=== PATIENT | male | born 1945 | race Caucasian/White ===

== ENCOUNTER 2020-02-03 11:23 | Inpatient (IN) | payer MEDICARE, MEDICAID, OTHER ==
[2020-02-03] MEDS ORDERED: niCARdipine 20MG In NaCl 20 MG/200 ML BAG ONE ×2 (14:29→14:32)
[2020-02-03] MEDS ORDERED: niCARdipine 50 MG in Sodium Chloride 0.9% 250 ML 230 ML IV SCH (16:00)
[2020-02-03] MEDS ORDERED: Acetaminophen 325 MG TAB PO PRN ×2 (16:00→16:29)
[2020-02-03] MEDS ORDERED: Ondansetron PF 4 MG/2 ML Vial IVP PRN ×2 (16:00→16:29)
[2020-02-03] MEDS ORDERED: Ondansetron ODT 4 MG TAB SL PRN (16:00)
[2020-02-03] MEDS ORDERED: Labetalol HCl 100 MG/20 ML VIAL SLOW IVP PRN (16:29)
[2020-02-03] MEDS ORDERED: Guaifenesin DM 100-10/5 ML UDCUP PO PRN (16:29)
[2020-02-03] MEDS ORDERED: hydrALAZINE 20 MG/ML VIAL SLOW IVP PRN (16:29)
[2020-02-03] MEDS ORDERED: Acetaminophen 650 MG Suppository PR PRN (16:29)
[2020-02-03] MEDS ORDERED: Ondansetron ODT 4 MG TAB PO PRN (16:29)
[2020-02-03 16:34] VITALS: BMI 22.0
[2020-02-03] MEDS ORDERED: HumaLOG 300 UNITS/3 ML VIAL SC PRN ×2 (16:40)
[2020-02-03] MEDS ORDERED: Dextrose 50% Abboject 50 ML SYRINGE SLOW IVP PRN (16:40)
[2020-02-03] MEDS ORDERED: Dextrose 5% in Water 1,000 ML IV PRN (16:40)
[2020-02-03] MEDS ORDERED: Amlodipine 10 MG TAB PO SCH (16:45)
--- NOTE | 2020-02-03 17:35 | HP ---
PRIMARY CARE PHYSICIAN: [facility]. CHIEF COMPLAINT: Confusion and left-sided weakness. HISTORY OF PRESENT ILLNESS: This is a 74-year-old white male with a known history of hypertension, tobacco abuse, and repeated previous strokes, last seen in [facility] for bilateral acute basal ganglia strokes and hypertensive emergency. He was discharged on multiple blood pressure medications. The patient reports he is not compliant with those, thinks he may have last taken some medicine about a week ago. The patient was noted by caregiver to be confused this morning and to have peed on himself. He was also noted to have some difficulty walking and left-sided weakness. When EMS arrived, his blood pressure was in the 240s over greater than 120s, so he was transported to [facility] for stabilization there. His mentation has already improved and his weakness was almost resolved. He had nicardipine drip started. Blood pressure improved with that and he was transferred here after negative CTA of the head and neck, negative CT of the brain. The patient is now currently in the ICU on nicardipine drip. Blood pressures are running in the 190s systolic. He denies any acute complaints. States he does have a little bit of trouble speaking and confusion, but that is baseline from his previous strokes. REVIEW OF SYSTEMS: CONSTITUTIONAL: No fevers. No chills. EYES: The patient reports that his left eye, he noted one day some time between his last hospitalization and this hospitalization that he suddenly had lost complete vision in that eye. This was over a week ago, uncertain exactly how long ago it happened. He has not had any vision in that eye ever since. He never went to a doctor about this. His vision in his right eye, he has not noticed any changes today with that. ENT: He has had some chronic runny nose, but no congestion. No sore throat. CARDIOVASCULAR: No chest pains. No palpitations or racing heart. PULMONARY: No new coughing. He does have a chronic smoker's cough for the last 2 years, but has not gotten worse recently. No shortness of breath or wheezing. GASTROINTESTINAL: No abdominal pain. No nausea or vomiting. No diarrhea or constipation. GENITOURINARY: No dysuria or hematuria. He did have the urinary incontinence this morning that he was not aware of. Currently, he is continent of his urine and states that he does need to urinate. MUSCULOSKELETAL: No muscle aches or joint pains of his extremities. He does have some right lateral chest tenderness from a fall. He was seen in the [facility] for about a week ago, was noted to have some cracked ribs. He does have an Gaurav bandage around his chest for stabilization, but has not had any other problems from that. SKIN: No rashes or other lesions noted. NEUROLOGIC: See HPI. He does not note any weakness currently. No numbness or tingling. PAST MEDICAL HISTORY: 1. Hypertension. 2. Hyperlipidemia. 3. Recurrent strokes. 4. Borderline diabetes, on metformin. 5. Chronic renal failure with creatinine around 2. PAST SURGICAL HISTORY: None. SOCIAL HISTORY: The patient drinks about twice a month. No drug use. He smokes a pack of cigarettes per day. Lives at home with his son, Dami Artis, who would be his medical power of insurance defense attorney. He states he is a full code. FAMILY HISTORY: No known family medical history. ALLERGIES: NO KNOWN DRUG ALLERGIES. CURRENT MEDICATIONS: Per patient's pharmacy which he is not taking, the patient is supposed to be on, 1. Metformin 500 mg each morning. 2. Acetaminophen with codeine. 3. One tablet every 6 hours as needed. He had 3 of 10 that he was prescribed in the ER left in the bottle. 4. Amlodipine 10 mg daily. 5. Atorvastatin 40 mg daily. 6. Hydralazine 50 mg 3 times a day. 7. Isosorbide mononitrate 30 mg daily. 8. Lisinopril 5 mg twice a day. PHYSICAL EXAMINATION: VITAL SIGNS: Blood pressure 181/61, pulse 75, respirations 16, O2 saturation 97% on room air, temperature 98.9. GENERAL: This is a well-developed, well-nourished white male, in no acute distress. HEENT: Pupils equal, round, and reactive to light. Oropharynx clear without lesions, erythema, or exudate. NECK: Supple. No lymphadenopathy. No thyroid nodules or enlargement. No JVD. HEART: Regular rate and rhythm. No murmurs, rubs, or gallops. LUNGS: Clear to auscultation bilaterally. No wheezes, crackles, or rhonchi. ABDOMEN: Soft, nontender to palpation. Normoactive bowel sounds. No hepatosplenomegaly or other masses. He does have some tenderness over his right lower rib cage, more anteriorly and laterally but without any bruising or deformity noted. EXTREMITIES: No clubbing, cyanosis, or edema. SKIN: No rashes or lesions noted. NEUROLOGIC: The patient has 5/5 strength in all 4 extremities and reflexes in all 4 extremities. He has no facial droop. He does have a little bit of trouble word finding occasionally and his speech, he occasionally has a little bit of a stutter and has some trouble remembering things, but if he takes enough time, he can remember things like where he is, the year and date, and why he is here. PSYCHIATRIC: Alert and oriented x3. Normal mood and affect. LABORATORY DATA: Troponin negative x2. CBC with a white blood cell count 13,000, 85% neutrophils, hemoglobin 10, hematocrit 30, normal platelets. Coagulation profile with an INR of 1.2. Complete metabolic panel is notable for chloride of 108, BUN of 34, creatinine of 2.17 which is actually down from 2.24 last month, glucose of 112, ALT of 7, albumin of 3.3. The rest is normal. Creatine kinase was low at 14. Troponin was negative. TSH was normal. IMAGING STUDIES: Chest x-ray; I did review the chest x-ray done in the emergency room along with the radiologist's report, it does show persistent nodular density in the right mid lung and they recommend elective CT chest as an outpatient. CT of the head without contrast was negative. CTA of the head and neck showed some atherosclerosis, but no evidence of stenosis or blockage. EKG; I did review the EKG done in the [facility], does show normal sinus rhythm at 78 beats per minute with some nonspecific ST wave abnormalities, but no evidence of acute ischemic changes or significant arrhythmias. ASSESSMENT: 1. Hypertensive emergency, improved on nicardipine drip. We will resume his home blood pressure medicines and try to titrate that off. 2. Transient ischemic attack versus stroke. The patient's weakness and altered mental status appeared to have resolved to baseline. We will get an MRI to see whether or not he has had another acute stroke. We will need to resume his medications and I have counseled him about the importance of taking them daily and about stopping smoking. Otherwise, he will have eventually have a major stroke. It will kill him. The patient expressed understanding of this. 3. Borderline diabetes. We will hold metformin due to creatinine elevation. We will check fingerstick blood sugars q.a.c. and at bedtime with a low insulin sliding scale. 4. Chronic renal failure. As far as I can tell, he is at baseline. We will watch carefully as we resume his GAURAV inhibitor. 5. Gastrointestinal prophylaxis. The patient is on Pepcid twice a day. 6. Deep venous thrombosis prophylaxis. We will put the patient on heparin subcutaneous. 7. Code status. The patient is a full code. Should he be incapacitated, his son, Dami Artis, would be his medical decision maker. Job ID: [id number]
[2020-02-03 19:25] LABS: Troponin I 0.018 ng/mL (< 0.028)
[2020-02-03] MEDS: Heparin 5,000 UNITS/ML VIAL SC SCH (20:01)
[2020-02-03] MEDS: Lisinopril 5 MG TAB PO SCH (20:02)
[2020-02-03] MEDS: hydrALAZINE 25 MG TAB PO SCH (20:02)
[2020-02-03] MEDS: Acetaminophen/Codeine 30-300mg Tablet PO PRN (20:03)
[2020-02-03] MEDS ORDERED: Famotidine 20 MG TAB PO SCH (21:00)
[2020-02-03 22:00] LABS: Troponin I 0.014 ng/mL (< 0.028)
[2020-02-04 03:55] LABS: #Basophils 0.1 thou/uL (0.0-0.2); #Eosinphils 0.4 thou/uL (0.0-0.7); #Lymphocytes 1.4 thou/uL (1.20-3.40); #Monocytes 0.6 thou/uL (0.11-0.59); #Neutrophils 12.1 thou/uL (1.40-6.50); %Basophils 0.4 % (0.0-1.0); %Eosinophils 2.8 % (0.0-10.0); %Lymphocytes 9.7 % (21.0-51.0); %Monocytes 3.8 % (0.0-10.0); %Neutrophils 83.3 % (42.0-75.0); Hemoglobin 11.2 g/dL (14.0-18.0); Mean Corpuscular HGB CONC 34.9 g/dL (32.0-36.0); Mean Corpuscular Hemoglobin 31.2 pg (27.0-31.0); Mean Corpuscular Volume 89.4 fL (78.0-98.0); Mean Platelet Volume 8.9 fL (7.4-10.4); Platelet Count 154 thou/uL (130-400); RBC Distribution Width 11.7 % (11.5-14.5); Red Blood Cell (RBC) Count 3.58 mill/uL (4.70-6.10); White Blood Cell (WBC) Count 14.6 thou/uL (4.8-10.8)
[2020-02-04 04:20] LABS: Anion Gap 12 mmol/L (10-20); BUN (Urea Nitrogen) 32 mg/dL (8.4-25.7); Calc. Creatinine Clearance 28 mL/min (70-130); Calcium 8.8 mg/dL (7.8-10.44); Carbon Dioxide 23 mmol/L (23-31); Cardiac Risk 3.5 (Less than 4.5); Chloride 111 mmol/L (98-107); Cholesterol 120 mg/dl (< 200 Desired); Estimated GFR-MDRD 31; Glucose 116 mg/dL (83-110); HDL Cholesterol 34 mg/dL (>60 Neg Risk); LDL Cholesterol, Calculated 70 mg/dL; Potassium 4.2 mmol/L (3.5-5.1); Sodium 142 mmol/L (136-145); Triglycerides 79 mg/dL (Less than 150)
--- NOTE | 2020-02-04 07:37 | CT ---
PRELIMINARY REPORT/DIRECT RADIOLOGY/EMERGENCY AFTER HOURS PROCEDURE: Comparison addendum: Prior study is now available dated February 03, 2020. No acute findings and no s ignificant interval change. Addendum electronically signed by Roberto Geronimo MD on February 04, 2020 5:36:11 AM CDT EXAM: CT Head Without Intravenous Contrast. CLINICAL HISTORY: F/U AMS\CONFUSION Pt was scanned at another facility, images sent for compariso n, images under ID [id number] TECHNIQUE: Axial computed tomography images of the head/brain without intravenous contrast. COMPARISON: NONE PROVIDED. FINDINGS: BRAIN: No acute intraparenchymal hemorrhage. No mass lesion. No CT evidence for acute territorial inf arct. No midline shift or extra-axial collection. Some confluent periventricular white matter changes are noted with chronic appearing low density in the right thalamus. VENTRICLES: No hydrocephalus. ORBITS: The orbits are unremarkable. SINUSES AND MASTOIDS: The paranasal sinuses and mastoid air cells are clear. Soft tissue density in the external ear canals bilaterally SOFT TISSUES: No significant facial or scalp soft tissue swelling evident. No radiopaque foreign body is seen. BONES: No acute skull fracture. IMPRESSION: No acute intracranial abnormality. Chronic changes are noted. Soft tissue opacities wi thin the external auditory canals bilaterally. ELECTRONICALLY SIGNED BY: Roberto Geronimo MD Feb 04, 2020 5:26:41 AM CDT FINAL REPORT HEAD CT WITHOUT CONTRAST: DATE: 02/04/2020. COMPARISON: 01/01/2020. HISTORY: Altered mental status, confusion. FINDINGS: I agree with the preliminary report. There is new opacification of a hypoplastic right sphenoid sinus . No acute osseous abnormality. No intracranial hemorrhage, midline shift, or mass effect. Stable lacunar infarctions within the basal ganglia. Stable periventricular and deep white matter hypodensit y, evidence of small vessel disease. IMPRESSION: No intracranial hemorrhage. Transcribed Date/Time: 02/04/2020 8:06 AM
[2020-02-04] MEDS: hydrALAZINE 25 MG TAB PO SCH ×3 (08:15→21:56)
[2020-02-04] MEDS: Amlodipine 10 MG TAB PO SCH (08:16)
[2020-02-04] MEDS: Lisinopril 5 MG TAB PO SCH ×2 (08:16→21:56)
[2020-02-04] MEDS: Heparin 5,000 UNITS/ML VIAL SC SCH ×3 (08:16→21:55)
--- NOTE | 2020-02-04 09:19 | PDOC.HOSPP ---
- Subjective Encounter Date: 02/04/20 Encounter Time: 09:30 Subjective: Patient without complaint today. A little confused and has to be given time to answer questions before can eventually get them right. - Objective Vital Signs & Weight: Vital Signs (12 hours) Temp Pulse BP 02/04/20 08:16 78 167/68 H 02/04/20 08:15 80 168/67 H 02/04/20 04:00 99.0 F 02/04/20 00:00 98.9 F Weight Weight 140 lb 10.479 oz Most Recent Monitor Data Heart Rate from ECG 84 NIBP 168/67 NIBP BP-Mean 100 Respiration from ECG 19 SpO2 100 I&O: 02/03/20 02/04/20 02/05/20 06:59 06:59 06:59 Intake Total 537 Output Total 1100 Balance -563 Result Diagrams: 02/04/20 03:31 02/04/20 03:31 Additional Labs: Accuchecks 02/04/20 02/03/20 04:40 20:08 POC Glucose 101 H 173 H Hospitalist ROS - Review of Systems Constitutional: denies: fever, chills, weakness Respiratory: denies: cough, shortness of breath Cardiovascular: denies: chest pain, palpitations Gastrointestinal: denies: nausea, vomiting, abdominal pain - Medication Medications: Active Medications Generic Name Dose Route Start Last Admin Trade Name Freq PRN Reason Stop Dose Admin Acetaminophen/Codeine Phosphate 1 tab 02/03/20 16:29 02/03/20 20:03 Acetaminophen/Codeine 30-300mg Tablet PO 1 tab Q6H PRN Administration Moderate to Severe Pain Amlodipine Besylate 10 mg 02/04/20 09:00 02/04/20 08:16 Amlodipine 10 Mg Tab PO 10 mg DAILY DAMIAN Administration Heparin Sodium (Porcine) 5,000 units 02/03/20 21:00 02/04/20 08:16 Heparin 5,000 Units/Ml Vial SC 5,000 units TID DAMIAN Administration Hydralazine HCl 50 mg 02/03/20 21:00 02/04/20 08:15 Hydralazine 25 Mg Tab PO 50 mg TID DAMIAN Administration Isosorbide Mononitrate 30 mg 02/04/20 09:00 02/04/20 08:16 Isosorbide Mononitrate Er 30 Mg Tab PO 30 mg DAILY DAMIAN Administration Lisinopril 5 mg 02/03/20 21:00 02/04/20 08:16 Lisinopril 5 Mg Tab PO 5 mg BID DAMIAN Administration - Exam General Appearance: NAD, awake alert ENT: moist mucosa Heart: RRR, no murmur, no gallops, no rubs Respiratory: CTAB, no wheezes, no rales, no ronchi Gastrointestinal: soft, non-tender, non-distended, normal bowel sounds Musculoskeletal: normal tone, normal strength Psychiatric: normal affect, normal behavior, A&O x 3 Psychiatric - other findings: slow responses and will sometimes get orientation quest wrong Hosp A/P (1) Hypertensive emergency Code(s): I16.1 - HYPERTENSIVE EMERGENCY Status: Resolved (2) TIA (transient ischemic attack) Code(s): G45.9 - TRANSIENT CEREBRAL ISCHEMIC ATTACK, UNSPECIFIED Status: Acute (3) Diabetes mellitus type 2 in nonobese Code(s): E11.9 - TYPE 2 DIABETES MELLITUS WITHOUT COMPLICATIONS Status: Chronic (4) Chronic renal failure, stage 3 (moderate) Code(s): N18.30 - CHRONIC KIDNEY DISEASE, STAGE 3 UNSPECIFIED Status: Chronic (5) History of CVA (cerebrovascular accident) Code(s): Z86.73 - PRSNL HX OF TIA (TIA), AND CEREB INFRC W/O RESID DEFICITS Status: Chronic (6) Hyperlipidemia Code(s): E78.5 - HYPERLIPIDEMIA, UNSPECIFIED Status: Chronic (7) Nonadherence to medication Code(s): Z91.14 - PATIENT'S OTHER NONCOMPLIANCE WITH MEDICATION REGIMEN Status: Chronic - Plan Aspirin Statin Resumed BP meds MRI pending, CTA head neck negative for stenosis/blockage GI proph: Pepcid DVT proph: Heparin sc
[2020-02-04 11:37] LABS: SARS-CoV-2 MS2 Positive; SARS-CoV-2 N Gene Negative; SARS-CoV-2 S Gene Negative; SARS-CoV-2 by NAA Not Detected (NotDetected); SARS-CoV-2 orf1ab Negative
--- NOTE | 2020-02-04 12:42 | PDOC.EEG ---
Neurology EEG Report - Report Report: This EEG was performed using 24 channel [employer] video digital EEG machine with 24 disc electrodes. This was an extended 2 hours 4 minutes of inpatient video EEG recording. Digital analysis of the EEG was done for Jenaro and seizure detection which revealed no abnormalities. Background: The nonsustained posterior pattern rhythm of 7 to 8 Hz. Minimal reactivity seen with eye opening and closure. Photic stimulation: No significant response seen with photic stimulation. Hyperventilation: Not performed. Sleep: Drowsiness and sleep are observed during the recording EEG diagnosis: Intermittent irregular theta activity seen throughout the recording. Nonsustained slow posterior background rhythm. Clinical interpretation: This EEG is consistent with moderate generalized nonspecific cerebral dysfunction.
--- NOTE | 2020-02-04 12:50 | CON ---
NEUROLOGY CONSULTATION DATE OF CONSULTATION: 02/04/2020 REASON FOR CONSULTATION: Confusion and left-sided weakness. HISTORY OF PRESENT ILLNESS: Mr. Kam is a 74-year-old male with a history significant for hypertension, tobacco abuse, and prior strokes, who was last seen in [place] for bilateral acute basal ganglia stroke and hypertensive emergency and been discharged on multiple blood pressure medications. Per patient, he has not been compliant with some of the medication and he came with hypertensive emergency. The family noticed him to be extremely confused on 02/03/2020 morning and he also had an episode of urinary incontinence. The family also noted that he was weak on the left side of his body. EMS was called and at that time, his systolic blood pressure was in 240s and diastolic greater than 120. He was transported to [facility] for stabilization and started on nicardipine drip. His weakness improved. Head CT was done, which was negative for acute intracranial pathology. CT of the head and neck was also negative. The patient denies any acute complaints. The patient does have trouble with speaking and he does have on and off mild confusion, which is his baseline due to prior stroke. The patient denies nausea, vomiting, headache, chest pain, abdominal pain, problem with swallowing, blurred vision, double vision or seizure-like activity associated with the episode. REVIEW OF SYSTEMS: All systems were reviewed and were negative except the pertinent positives and negatives mentioned in the HPI. PAST MEDICAL HISTORY: Hypertension, hyperlipidemia, prior strokes, diabetes, chronic renal failure. PAST SURGICAL HISTORY: Not significant. SOCIAL HISTORY: The patient drinks about twice a week. Denies alcohol, illegal drug abuse. He smokes a pack of cigarettes per day. FAMILY HISTORY: No family history of stroke or seizures. ALLERGIES: NO KNOWN DRUG ALLERGIES. CURRENT MEDICATIONS: The patient was supposed to be on, 1. Metformin. 2. Amlodipine. 3. Atorvastatin. 4. Hydralazine. 5. Isosorbide. 6. Lisinopril. Per patient, he is not compliant with the medications. Vital Signs & Weight: Vital Signs (12 hours) Temp Pulse BP 02/04/20 08:16 78 167/68 H 02/04/20 08:15 80 168/67 H 02/04/20 04:00 99.0 F 02/04/20 00:00 98.9 F Weight Weight 140 lb 10.479 oz Most Recent Monitor Data Heart Rate from ECG 84 NIBP 168/67 NIBP BP-Mean 100 Respiration from ECG 19 SpO2 100 I&O: 02/03/20 02/04/20 02/05/20 06:59 06:59 06:59 Intake Total 537 Output Total 1100 Balance -563 Additional Labs: Accuchecks 02/04/20 02/03/20 04:40 20:08 POC Glucose 101 H 173 H Active Medications Generic Name Dose Route Start Last Admin Trade Name Freq PRN Reason Stop Dose Admin Acetaminophen/Codeine Phosphate 1 tab 02/03/20 16:29 02/03/20 20:03 Acetaminophen/Codeine 30-300mg Tablet PO 1 tab Q6H PRN Administration Moderate to Severe Pain Amlodipine Besylate 10 mg 02/04/20 09:00 02/04/20 08:16 Amlodipine 10 Mg Tab PO 10 mg DAILY DAMIAN Administration Heparin Sodium (Porcine) 5,000 units 02/03/20 21:00 02/04/20 08:16 Heparin 5,000 Units/Ml Vial SC 5,000 units TID DAMIAN Administration Hydralazine HCl 50 mg 02/03/20 21:00 02/04/20 08:15 Hydralazine 25 Mg Tab PO 50 mg TID DAMIAN Administration Isosorbide Mononitrate 30 mg 02/04/20 09:00 02/04/20 08:16 Isosorbide Mononitrate Er 30 Mg Tab PO 30 mg DAILY DAMIAN Administration Lisinopril 5 mg 02/03/20 21:00 02/04/20 08:16 Lisinopril 5 Mg Tab PO 5 mg BID DAMIAN Administration PHYSICAL EXAMINATION: VITAL SIGNS: Blood pressure 180/60, pulse 80, respiratory rate 18. CVS: Regular rate and rhythm. CHEST: Clear. ABDOMEN: Soft. NECK: Supple. NEUROLOGIC: Mental status; the patient is alert and oriented to person and place, but not time. Speech is clear. He does have some receptive aphasia. Cranial nerves 2 through 12 intact. Motor, muscle tone and bulk are normal. Moving all 4 extremities equally and symmetrically. Mild left hemiparesis. Sensory, withdraws to nailbed pressure bilaterally. Cerebellar, finger-nose testing intact. Gait deferred due to the patient's safety reason. DATA REVIEWED: I reviewed the results of the CT scan which was negative for acute intracranial pathology. CT of the head and neck reviewed, which did not show hemodynamically significant stenosis. EKG showed normal sinus rhythm. ASSESSMENT AND PLAN: (1) Hypertensive emergency Code(s): I16.1 - HYPERTENSIVE EMERGENCY Status: Acute (2) TIA (transient ischemic attack) Code(s): G45.9 - TRANSIENT CEREBRAL ISCHEMIC ATTACK, UNSPECIFIED Status: Acute (3) Diabetes mellitus type 2 in nonobese Code(s): E11.9 - TYPE 2 DIABETES MELLITUS WITHOUT COMPLICATIONS Status: Chronic (4) Chronic renal failure, stage 3 (moderate) Code(s): N18.30 - CHRONIC KIDNEY DISEASE, STAGE 3 UNSPECIFIED Status: Chronic (5) History of CVA (cerebrovascular accident) Code(s): Z86.73 - PRSNL HX OF TIA (TIA), AND CEREB INFRC W/O RESID DEFICITS Status: Chronic (6) Hyperlipidemia Code(s): E78.5 - HYPERLIPIDEMIA, UNSPECIFIED Status: Chronic (7) Nonadherence to medication Code(s): Z91.14 - PATIENT'S OTHER NONCOMPLIANCE WITH MEDICATION REGIMEN Status: Chronic Mr. Andrew Kam is a 74-year-old male with history significant for hypertension, hyperlipidemia, diabetes, prior stroke, presented with acute onset left-sided weakness with confusion in the setting of hypertensive emergency, which is now almost resolved, most likely transient ischemic attack. Consider MRI of the brain to rule out acute intracranial process. 2D echo, carotid Dopplers, and telemetry. Neuro checks every 4 hours. Monitor blood pressure and strict control of blood glucose. Check hemoglobin A1c, fasting lipid panel, and TSH. Continue aspirin and high-intensity statin for secondary stroke prevention. Continue home medication. Continue medical management per primary team. PT/OT/Speech. EEG to evaluate for confusion to rule out cortical irritability is negative for seizure activity. Plan discussed with the patient and the nursing staff. We will continue to follow. Thank you for the consult. Job ID: [id number] [email or web address]
--- NOTE | 2020-02-04 13:40 | MRI ---
MRI of thebrain without contrast: 02/04/2020 COMPARISON:01/02/2020 HISTORY:Increasing weakness, assess for acute infarction TECHNIQUE: Multiplanar multisequence MR imaging of thebrain without contrast Findings:The diffusion weighted imaging demonstrates no evidence for acute infarction. There are a few scattered areas of stable blooming artifact on the gradient echo imaging suggesting a combination of remote microhemorrhage and calcification. The axial gradient echo imaging demonstrates no evidence for acute hemorrhage. There is patchy increased T2/FLAIR signal within the p ons, a stable finding. There is also extensive multifocal periventricular, deep, and subcortical white matter T2 and FLAIR hyperintensity. These findings are consistent with prominent stable small v essel disease. Arterial flow voids at the axial level of the skull base appear grossly unremarkable on the T2-weight ed imaging. Regional bone marrow signal intensity within normal limits. IMPRESSION:Significant small vessel disease. No MR evidence for acute infarction.
[2020-02-04] MEDS: Atorvastatin Calcium 40 MG TAB PO SCH (21:56)
[2020-02-04] MEDS: Famotidine 20 MG TAB PO SCH (21:56)
[2020-02-05 08:26] LABS: Anion Gap 10 mmol/L (10-20); BUN (Urea Nitrogen) 30 mg/dL (8.4-25.7); Calc. Creatinine Clearance 28 mL/min (70-130); Calcium 8.7 mg/dL (7.8-10.44); Carbon Dioxide 24 mmol/L (23-31); Chloride 107 mmol/L (98-107); Estimated GFR-MDRD 31; Glucose 85 mg/dL (83-110); Sodium 137 mmol/L (136-145)
[2020-02-05 08:28] LABS: ALT (SGPT) 8 U/L (8-55); AST (SGOT) 13 U/L (5-34); Albumin 3.5 g/dL (3.4-4.8); Alkaline Phosphatase 69 U/L (40-110); Bilirubin, Direct 0.3 mg/dL (0.1-0.3); Bilirubin, Total 0.6 mg/dL (0.2-1.2); Protein, Total 6.5 g/dL (5.8-8.1)
[2020-02-05] MEDS: Heparin 5,000 UNITS/ML VIAL SC SCH ×3 (08:36→22:14)
[2020-02-05] MEDS: Aspirin Chewable 81 MG TAB PO SCH (08:36)
[2020-02-05] MEDS: Amlodipine 10 MG TAB PO SCH (08:37)
[2020-02-05] MEDS: hydrALAZINE 25 MG TAB PO SCH ×3 (08:38→22:14)
[2020-02-05] MEDS: Lisinopril 5 MG TAB PO SCH ×2 (08:38→22:15)
[2020-02-05] MEDS: Acetaminophen/Codeine 30-300mg Tablet PO PRN (08:49)
--- NOTE | 2020-02-05 13:38 | PDOC.NEUPN ---
- Subjective Encounter Date: 02/05/20 Subjective: Patient feels much better today. He denies any new complaints. - Objective Vital Signs & Weight: Vital Signs (12 hours) Temp Pulse Resp BP BP Pulse Ox 02/05/20 11:17 97.0 F L 72 17 161/70 H 96 02/05/20 10:38 142/62 H 02/05/20 08:38 66 194/78 H 02/05/20 07:09 98.5 F 75 16 175/68 H 94 L 02/05/20 05:42 98.3 F 67 19 171/76 H 97 Weight Weight 140 lb 10.479 oz Most Recent Monitor Data Heart Rate from ECG 79 NIBP 143/70 NIBP BP-Mean 94 Respiration from ECG 16 SpO2 100 I&O: 02/04/20 02/05/20 02/06/20 06:59 06:59 06:59 Intake Total 537 600 Output Total 1100 1 Balance -563 599 Result Diagrams: 02/04/20 03:31 02/05/20 07:39 Additional Labs: Accuchecks 02/05/20 02/05/20 02/04/20 10: 06:00 22:14 POC Glucose 132 H 85 136 H 02/04/20 16:24 POC Glucose 108 H Radiology Reviewed by me: Yes EKG Reviewed by me: Yes ROS - Review of Systems Constitutional: denies: fever, chills, sweats, weakness, malaise, other Eyes: denies: pain, vision change, conjunctivae inflammation, eyelid inflammation, redness, other ENT: denies: ear pain, ear discharge, nose pain, nose discharge, nose congestion, mouth pain, mouth swelling, throat pain, throat swelling, other Respiratory: denies: cough, dry, shortness of breath, hemoptysis, SOB with excertion, pleuritic pain, sputum, wheezing, other Musculoskeletal: denies: neck pain, shoulder pain, arm pain, back pain, hand pain, leg pain, foot pain, other All Systems: All other systems reviewed; all pertinent +/- noted in HPI/Subj - Medication Medications: Active Medications Generic Name Dose Route Start Last Admin Trade Name Freq PRN Reason Stop Dose Admin Acetaminophen/Codeine Phosphate 1 tab 02/03/20 16:29 02/05/20 08:49 Acetaminophen/Codeine 30-300mg Tablet PO 1 tab Q6H PRN Administration Moderate to Severe Pain Amlodipine Besylate 10 mg 02/04/20 09:00 02/05/20 08:37 Amlodipine 10 Mg Tab PO 10 mg DAILY DAMIAN Administration Aspirin 81 mg 02/05/20 09:00 02/05/20 08:36 Aspirin Chewable 81 Mg Tab PO 81 mg DAILY DAMIAN Administration Atorvastatin Calcium 40 mg 02/04/20 21:00 02/04/20 21:56 Atorvastatin Calcium 40 Mg Tab PO 40 mg HS DAMIAN Administration Famotidine 20 mg 02/04/20 21:00 02/04/20 21:56 Famotidine 20 Mg Tab PO 20 mg 2100 DAMIAN Administration Guaifenesin/Dextromethorphan 15 ml 02/03/20 16:29 02/04/20 16:50 Guaifenesin Dm 100-10/5 Ml Udcup PO 15 ml Q4H PRN Administration Cough Heparin Sodium (Porcine) 5,000 units 02/03/20 21:00 02/05/20 08:36 Heparin 5,000 Units/Ml Vial SC 5,000 units TID [facility] Administration Hydralazine HCl 50 mg 02/03/20 21:00 02/05/20 08:38 Hydralazine 25 Mg Tab PO 50 mg TID [facility] Administration Isosorbide Mononitrate 30 mg 02/04/20 09:00 02/05/20 08:37 Isosorbide Mononitrate Er 30 Mg Tab PO 30 mg DAILY DAMIAN Administration Lisinopril 5 mg 02/03/20 21:00 02/05/20 08:38 Lisinopril 5 Mg Tab PO 5 mg BID DAMIAN Administration - Exam General Appearance: awake alert Eye: PERRL ENT: normocephalic atraumatic Neck: supple Respiratory: CTAB Cardiovascular: RRR Gastrointestinal: soft Extremities: no cyanosis Skin: normal turgor Neurological: no new deficit PSYCH: normal affect, normal behavior, oriented to person, oriented to place Results - Labs Result Diagrams: 02/04/20 03:31 02/05/20 07:39 Lab results: WBC 14.6 thou/uL (4.8-10.8) H 02/04/20 03:31 Hgb 11.2 g/dL (14.0-18.0) L 02/04/20 03:31 Hct 32.0 % (42.0-52.0) L 02/04/20 03:31 MCV 89.4 fL (78.0-98.0) 02/04/20 03:31 Plt Count 154 thou/uL (130-400) 02/04/20 03:31 Neutrophils % 83.3 % (42.0-75.0) H 02/04/20 03:31 Sodium 137 mmol/L (136-145) 02/05/20 07:39 Potassium 4.0 mmol/L (3.5-5.1) 02/05/20 07:39 Chloride 107 mmol/L (98-107) 02/05/20 07:39 Carbon Dioxide 24 mmol/L (23-31) 02/05/20 07:39 BUN 30 mg/dL (8.4-25.7) H 02/05/20 07:39 Creatinine 2.08 mg/dL (0.7-1.3) H 02/05/20 07:39 Glucose 85 mg/dL (83-110) 02/05/20 07:39 Calcium 8.7 mg/dL (7.8-10.44) 02/05/20 07:39 Total Bilirubin 0.6 mg/dL (0.2-1.2) 02/05/20 07:39 AST 13 U/L (5-34) 02/05/20 07:39 ALT 8 U/L (8-55) 02/05/20 07:39 Alkaline Phosphatase 69 U/L (40-110) 02/05/20 07:39 Troponin I 0.014 ng/mL (< 0.028) 02/03/20 21:11 Serum Total Protein 6.5 g/dL (5.8-8.1) 02/05/20 07:39 Albumin 3.5 g/dL (3.4-4.8) 02/05/20 07:39 - Radiology Interpretation MRI - head Status: image reviewed by me, report reviewed by me Additional Comment: MRI brain did not reeal acute intracranial pathology PN A/P (1) TIA (transient ischemic attack) Code(s): G45.9 - TRANSIENT CEREBRAL ISCHEMIC ATTACK, UNSPECIFIED Status: Acute (2) Chronic renal failure, stage 3 (moderate) Code(s): N18.30 - CHRONIC KIDNEY DISEASE, STAGE 3 UNSPECIFIED Status: Chronic (3) Diabetes mellitus type 2 in nonobese Code(s): E11.9 - TYPE 2 DIABETES MELLITUS WITHOUT COMPLICATIONS Status: Chronic (4) History of CVA (cerebrovascular accident) Code(s): Z86.73 - PRSNL HX OF TIA (TIA), AND CEREB INFRC W/O RESID DEFICITS Status: Chronic (5) Hyperlipidemia Code(s): E78.5 - HYPERLIPIDEMIA, UNSPECIFIED Status: Chronic (6) Nonadherence to medication Code(s): Z91.14 - PATIENT'S OTHER NONCOMPLIANCE WITH MEDICATION REGIMEN Status: Chronic (7) Hypertensive emergency Code(s): I16.1 - HYPERTENSIVE EMERGENCY Status: Resolved - Plan Daily Plan: PT/OT, speech therapy, DVT proph w/SCDs 74 year old presesented with acute onset left sided weakness and confusion in the setting of hypertensive emergency which is resolved. Most likely TIA due to noncompliance . MRI brain reviewed and was negative for acute intracanial pathology. EEG reviewed and was negative for seizure activity. Continue aspirin and statin for secondary stroke prevention. CTA head and nsck did not reveal hemodynamically significant stenosis. Strict control of BP and BG. Neurochecks every 4 hours. Medicine compliance encouraged. Telemetry PT/OT/Speech. Continue medical management per primary team. Plan discussed with patient and during MDR rounds.
--- NOTE | 2020-02-05 15:52 | DIS ---
DATE OF ADMISSION: 02/03/2020 DATE OF DISCHARGE: 02/05/2020 DISCHARGE DISPOSITION: Home. PRIMARY DISCHARGE DIAGNOSES: 1. Hypertensive emergency on admission, resolved. 2. TIA with left-sided weakness, resolved. SECONDARY DISCHARGE DIAGNOSES: 1. Diabetes mellitus type 2. 2. Dyslipidemia. 3. Noncompliance with medication. 4. Chronic kidney disease stage 3. PROCEDURES DONE DURING HOSPITALIZATION: CT of brain without contrast showed no acute intracranial abnormality. MRI of brain without contrast done showed significant small-vessel disease. No acute infarct was seen. H and H of 11 and 32, platelet count is 154. BUN 30, creatinine 2.0. Albumin 3.5. Liver enzymes within normal limits. Total cholesterol 120, triglycerides 79, LDL 70, HDL 34. Troponin x3 negative. COVID-19 PCR was not detected on 02/03/2020. DISCHARGE MEDICATIONS: 1. Metformin 500 mg p.o. q.a.m. 2. Hydralazine 50 mg 3 times daily. 3. Imdur extended release 30 mg p.o. daily. 4. Atorvastatin 40 mg p.o. daily. 5. Norvasc 10 mg p.o. daily. 6. Lisinopril 5 mg twice daily. 7. Aspirin 81 mg p.o. daily. 8. Dulera inhaler twice daily. 9. Albuterol inhaler q.6 hourly p.r.n. ALLERGIES: NO KNOWN DRUG ALLERGIES. INPATIENT SIDE STITCHER: Dr. Batres for Neurology. DISCHARGE PLAN: The patient to follow up with his primary care physician in 1 week. BRIEF COURSE DURING HOSPITALIZATION: The patient initially was brought to emergency room for confusion and left-sided weakness. His initial systolic blood pressures were more than 240. He was placed on Cardene drip in ICU initially. Mr. Kam was later downgraded to stroke unit. He has had CT of brain and MRI of brain done, both of which did not show any acute infarct. The patient likely had TIA due to hypertensive emergency, which got resolved. He also has history of tobacco abuse with smoking more than a pack. He is known to be noncompliant with medications. Mr. Kam was counseled with regard to medication and dietary compliance. He is also counseled to stop smoking. Prior to discharge, he is ambulating and eating well. His medications have been optimized at the time of discharge. He needs follow up with his primary care physician in 1 week. Please note, I have seen and examined the patient on the day of discharge. Job ID: [id number]
[2020-02-05] MEDS: Atorvastatin Calcium 40 MG TAB PO SCH (22:14)
[2020-02-05] MEDS: Famotidine 20 MG TAB PO SCH (22:15)
[2020-02-06 03:57] VITALS: TEMP 98.3
[2020-02-06 08:21] VITALS: BP 199/82
[2020-02-06] MEDS: Aspirin Chewable 81 MG TAB PO SCH (08:59)
[2020-02-06] MEDS: hydrALAZINE 25 MG TAB PO SCH (08:59)
[2020-02-06] MEDS: Amlodipine 10 MG TAB PO SCH (08:59)
[2020-02-06] MEDS: Heparin 5,000 UNITS/ML VIAL SC SCH (09:00)
[2020-02-06] MEDS: Lisinopril 5 MG TAB PO SCH (09:00)
--- NOTE | 2020-02-06 12:24 | PDOC.NEUPN ---
- Subjective Encounter Date: 02/06/20 Subjective: Patient reports no complaints in the last 24 hours. He feels better today. - Objective Vital Signs & Weight: Vital Signs (12 hours) Temp Pulse Resp BP Pulse Ox 02/06/20 08:00 98.3 F 72 16 199/82 H 96 02/06/20 03:54 98.3 F 65 16 172/80 H 98 Weight Weight 140 lb 10.479 oz Most Recent Monitor Data Heart Rate from ECG 79 NIBP 143/70 NIBP BP-Mean 94 Respiration from ECG 16 SpO2 100 I&O: 02/05/20 02/06/20 02/07/20 06:59 06:59 06:59 Intake Total 600 Output Total 1 Balance 599 Result Diagrams: 02/04/20 03:31 02/05/20 07:39 Additional Labs: Accuchecks 02/06/20 02/06/20 02/05/20 10:36 05:18 20:32 POC Glucose 141 H 93 124 H 02/05/20 02/04/20 16:35 11:07 POC Glucose 123 H 93 Radiology Reviewed by me: Yes EKG Reviewed by me: Yes ROS - Review of Systems Constitutional: denies: fever, chills, sweats, weakness, malaise, other Eyes: denies: pain, vision change, conjunctivae inflammation, eyelid inflammation, redness, other ENT: denies: ear pain, ear discharge, nose pain, nose discharge, nose congestion, mouth pain, mouth swelling, throat pain, throat swelling, other Respiratory: denies: cough, dry, shortness of breath, hemoptysis, SOB with excertion, pleuritic pain, sputum, wheezing, other Genitourinary: denies: dysuria, frequency, incontinence, hematuria, retention, other Musculoskeletal: denies: neck pain, shoulder pain, arm pain, back pain, hand pain, leg pain, foot pain, other Skin: denies: rash, lesions, tereza, bruising, other All Systems: All other systems reviewed; all pertinent +/- noted in HPI/Subj - Medication Medications: Active Medications Generic Name Dose Route Start Last Admin Trade Name Freq PRN Reason Stop Dose Admin Acetaminophen/Codeine Phosphate 1 tab 02/03/20 16:29 02/05/20 08:49 Acetaminophen/Codeine 30-300mg Tablet PO 1 tab Q6H PRN Administration Moderate to Severe Pain Amlodipine Besylate 10 mg 02/04/20 09:00 02/06/20 08:59 Amlodipine 10 Mg Tab PO 10 mg DAILY DAMIAN Administration Aspirin 81 mg 02/05/20 09:00 02/06/20 08:59 Aspirin Chewable 81 Mg Tab PO 81 mg DAILY DAMIAN Administration Atorvastatin Calcium 40 mg 02/04/20 21:00 02/05/20 22:14 Atorvastatin Calcium 40 Mg Tab PO 40 mg HS DAMIAN Administration Famotidine 20 mg 02/04/20 21:00 02/05/20 22:15 Famotidine 20 Mg Tab PO 20 mg 2100 DAMIAN Administration Guaifenesin/Dextromethorphan 15 ml 02/03/20 16:29 02/04/20 16:50 Guaifenesin Dm 100-10/5 Ml Udcup PO 15 ml Q4H PRN Administration Cough Heparin Sodium (Porcine) 5,000 units 02/03/20 21:00 02/06/20 09:00 Heparin 5,000 Units/Ml Vial SC 5,000 units TID DAMIAN Administration Hydralazine HCl 50 mg 02/03/20 21:00 02/06/20 08:59 Hydralazine 25 Mg Tab PO 50 mg TID DAMIAN Administration Isosorbide Mononitrate 30 mg 02/04/20 09:00 02/06/20 09:00 Isosorbide Mononitrate Er 30 Mg Tab PO 30 mg DAILY DAMIAN Administration Lisinopril 5 mg 02/03/20 21:00 02/06/20 09:00 Lisinopril 5 Mg Tab PO 5 mg BID DAMIAN Administration - Exam General Appearance: awake alert Eye: PERRL ENT: normocephalic atraumatic Neck: supple Respiratory: no tachypnea Cardiovascular: RRR Gastrointestinal: soft Extremities: no cyanosis Skin: normal turgor Neurological: no new deficit Musculoskeletal: generalized weakness PSYCH: normal affect, normal behavior, A&O x 3 Results - Labs Result Diagrams: 02/04/20 03:31 02/05/20 07:39 Lab results: WBC 14.6 thou/uL (4.8-10.8) H 02/04/20 03:31 Hgb 11.2 g/dL (14.0-18.0) L 02/04/20 03:31 Hct 32.0 % (42.0-52.0) L 02/04/20 03:31 MCV 89.4 fL (78.0-98.0) 02/04/20 03:31 Plt Count 154 thou/uL (130-400) 02/04/20 03:31 Neutrophils % 83.3 % (42.0-75.0) H 02/04/20 03:31 Sodium 137 mmol/L (136-145) 02/05/20 07:39 Potassium 4.0 mmol/L (3.5-5.1) 02/05/20 07:39 Chloride 107 mmol/L (98-107) 02/05/20 07:39 Carbon Dioxide 24 mmol/L (23-31) 02/05/20 07:39 BUN 30 mg/dL (8.4-25.7) H 02/05/20 07:39 Creatinine 2.08 mg/dL (0.7-1.3) H 02/05/20 07:39 Glucose 85 mg/dL (83-110) 02/05/20 07:39 Calcium 8.7 mg/dL (7.8-10.44) 02/05/20 07:39 Total Bilirubin 0.6 mg/dL (0.2-1.2) 02/05/20 07:39 AST 13 U/L (5-34) 02/05/20 07:39 ALT 8 U/L (8-55) 02/05/20 07:39 Alkaline Phosphatase 69 U/L (40-110) 02/05/20 07:39 Troponin I 0.014 ng/mL (< 0.028) 02/03/20 21:11 Serum Total Protein 6.5 g/dL (5.8-8.1) 02/05/20 07:39 Albumin 3.5 g/dL (3.4-4.8) 02/05/20 07:39 - Radiology Interpretation MRI - head Status: image reviewed by me, report reviewed by me Additional Comment: MRI brain negative for acute intracranial pathology PN A/P (1) TIA (transient ischemic attack) Code(s): G45.9 - TRANSIENT CEREBRAL ISCHEMIC ATTACK, UNSPECIFIED Status: Acute (2) Chronic renal failure, stage 3 (moderate) Code(s): N18.30 - CHRONIC KIDNEY DISEASE, STAGE 3 UNSPECIFIED Status: Chronic (3) Diabetes mellitus type 2 in nonobese Code(s): E11.9 - TYPE 2 DIABETES MELLITUS WITHOUT COMPLICATIONS Status: Chronic (4) History of CVA (cerebrovascular accident) Code(s): Z86.73 - PRSNL HX OF TIA (TIA), AND CEREB INFRC W/O RESID DEFICITS Status: Chronic (5) Hyperlipidemia Code(s): E78.5 - HYPERLIPIDEMIA, UNSPECIFIED Status: Chronic (6) Nonadherence to medication Code(s): Z91.14 - PATIENT'S OTHER NONCOMPLIANCE WITH MEDICATION REGIMEN Status: Chronic (7) Hypertensive emergency Code(s): I16.1 - HYPERTENSIVE EMERGENCY Status: Resolved - Plan Daily Plan: PT/OT, speech therapy, DVT proph w/SCDs 74 year old presesented with acute onset left sided weakness and confusion in the setting of hypertensive emergency which is resolved and he is back to his baseline. Most likely TIA due to medication noncompliance . Patient feels better today denies any new complaints. MRI brain reviewed and was negative for acute intracanial pathology. EEG reviewed and was negative for seizure activity. Continue aspirin and statin for secondary stroke prevention. CTA head and nsck did not reveal hemodynamically significant stenosis. Strict control of BP and BG. Neurochecks every 4 hours. Medicine compliance encouraged. Telemetry PT/OT/Speech. Continue medical management per primary team. Plan discussed with the patient.
--- NOTE | 2020-02-06 15:19 | PDOC.HOSPP ---
- Subjective Encounter Date: 02/05/20 Encounter Time: 12:00 Subjective: feels good, no c/o weakness has chronic cough due to smoking habbit wants to go home, is amb in room - Objective Vital Signs & Weight: Vital Signs (12 hours) Temp Pulse Resp BP Pulse Ox 02/06/20 08:00 98.3 F 72 16 199/82 H 96 02/06/20 03:54 98.3 F 65 16 172/80 H 98 Weight Weight 140 lb 10.479 oz Most Recent Monitor Data Heart Rate from ECG 79 NIBP 143/70 NIBP BP-Mean 94 Respiration from ECG 16 SpO2 100 I&O: 02/05/20 02/06/20 02/07/20 06:59 06:59 06:59 Intake Total 600 Output Total 1 Balance 599 Result Diagrams: 02/04/20 03:31 02/05/20 07:39 Additional Labs: Accuchecks 02/06/20 02/06/20 02/05/20 10:36 05:18 20:32 POC Glucose 141 H 93 124 H 02/05/20 02/04/20 16:35 11:07 POC Glucose 123 H 93 - Exam General Appearance: awake alert Eye: PERRL, anicteric sclera ENT: no oropharyngeal lesions, moist mucosa Neck: supple, no JVD Heart: RRR, no murmur Respiratory: no wheezes, no rales, rhonchi Gastrointestinal: soft, non-tender, non-distended, normal bowel sounds Extremities: no cyanosis, no edema Neurological: cranial nerve grossly intact, no focal deficits Psychiatric: normal affect, A&O x 3 Hosp A/P (1) TIA (transient ischemic attack) Code(s): G45.9 - TRANSIENT CEREBRAL ISCHEMIC ATTACK, UNSPECIFIED Status: Resolved (2) Chronic renal failure, stage 3 (moderate) Code(s): N18.30 - CHRONIC KIDNEY DISEASE, STAGE 3 UNSPECIFIED Status: Chronic (3) Diabetes mellitus type 2 in nonobese Code(s): E11.9 - TYPE 2 DIABETES MELLITUS WITHOUT COMPLICATIONS Status: Chronic (4) History of CVA (cerebrovascular accident) Code(s): Z86.73 - PRSNL HX OF TIA (TIA), AND CEREB INFRC W/O RESID DEFICITS Status: Chronic (5) Hyperlipidemia Code(s): E78.5 - HYPERLIPIDEMIA, UNSPECIFIED Status: Chronic (6) Nonadherence to medication Code(s): Z91.14 - PATIENT'S OTHER NONCOMPLIANCE WITH MEDICATION REGIMEN Status: Chronic (7) Hypertensive emergency Code(s): I16.1 - HYPERTENSIVE EMERGENCY Status: Resolved - Plan hemostable on current medications neurostable with complete resolution of left sided weakness and confusion dc pt home counselled reg smoking cessation, nebs prn while in house
--- NOTE | 2020-02-06 15:23 | PDOC.HOSPP ---
- Subjective Encounter Date: 02/06/20 Encounter Time: 09:00 Subjective: no new complaints says his son will come this evening to pick him up, he couldn't contact [place] yesterday [place] - Objective Vital Signs & Weight: Vital Signs (12 hours) Temp Pulse Resp BP Pulse Ox 02/06/20 08:00 98.3 F 72 16 199/82 H 96 02/06/20 03:54 98.3 F 65 16 172/80 H 98 Weight Weight 140 lb 10.479 oz Most Recent Monitor Data Heart Rate from ECG 79 NIBP 143/70 NIBP BP-Mean 94 Respiration from ECG 16 SpO2 100 I&O: 02/05/20 02/06/20 02/07/20 06:59 06:59 06:59 Intake Total 600 Output Total 1 Balance 599 Result Diagrams: 02/04/20 03:31 02/05/20 07:39 Additional Labs: Accuchecks 02/06/20 02/06/20 02/05/20 10:36 05:18 20:32 POC Glucose 141 H 93 124 H 02/05/20 02/04/20 16:35 11:07 POC Glucose 123 H 93 - Exam General Appearance: awake alert Eye: PERRL, anicteric sclera ENT: normocephalic atraumatic, moist mucosa Neck: supple, no JVD Heart: RRR, no murmur Respiratory: no wheezes, no rales, rhonchi Gastrointestinal: soft, non-tender, non-distended, normal bowel sounds Extremities: no cyanosis, no edema Neurological: cranial nerve grossly intact, no focal deficits Psychiatric: normal affect, A&O x 3 Hosp A/P (1) TIA (transient ischemic attack) Code(s): G45.9 - TRANSIENT CEREBRAL ISCHEMIC ATTACK, UNSPECIFIED Status: Resolved (2) Chronic renal failure, stage 3 (moderate) Code(s): N18.30 - CHRONIC KIDNEY DISEASE, STAGE 3 UNSPECIFIED Status: Chronic (3) Diabetes mellitus type 2 in nonobese Code(s): E11.9 - TYPE 2 DIABETES MELLITUS WITHOUT COMPLICATIONS Status: Chronic (4) History of CVA (cerebrovascular accident) Code(s): Z86.73 - PRSNL HX OF TIA (TIA), AND CEREB INFRC W/O RESID DEFICITS Status: Chronic (5) Hyperlipidemia Code(s): E78.5 - HYPERLIPIDEMIA, UNSPECIFIED Status: Chronic (6) Nonadherence to medication Code(s): Z91.14 - PATIENT'S OTHER NONCOMPLIANCE WITH MEDICATION REGIMEN Status: Chronic (7) Hypertensive emergency Code(s): I16.1 - HYPERTENSIVE EMERGENCY Status: Resolved - Plan hemostable on current medications neurostable with complete resolution of left sided weakness and confusion dc pt home, his son will come to pick him up this evening. counselled reg smoking cessation, nebs prn while in house Please see dc summary dictated on 02/05/2020
== END 2020-02-06 12:22 | disposition home or self-care (01) | DRG 69 ==
LOC: ERS 11:23 → CCU 15:31 → 2SE 02-04 13:52
PROVIDERS: ADMIT Emergency Medicine; ATTEND Emergency Medicine
DX: G45.9 Transient cerebral ischemic attack, unspecified (principal); I16.1 Hypertensive emergency; G81.94 Hemiplegia, unspecified affecting left nondominant side; Z20.828 Contact with and (suspected) exposure to other viral communicable diseases; I12.9 Hypertensive chronic kidney disease with stage 1 through stage 4 chronic kidney disease, or unspecified chronic kidney disease; E11.22 Type 2 diabetes mellitus with diabetic chronic kidney disease; E78.5 Hyperlipidemia, unspecified; N18.30 Chronic kidney disease, stage 3 unspecified; F17.210 Nicotine dependence, cigarettes, uncomplicated; Z91.14 Patient's other noncompliance with medication regimen; Z79.84 Long term (current) use of oral hypoglycemic drugs; Z79.899 Other long term (current) drug therapy; Z86.73 Personal history of transient ischemic attack (TIA), and cerebral infarction without residual deficits
CPT/HCPCS: 36415; 36416; 70450; 70551; 80048; 80061; 80076; 84484; 85025; 87635; 93005; 93306; 94640; 95712; 95819; 95957; 96365; 96366; J1644; J7050; J7620; U0003

== ENCOUNTER 2020-02-20 10:49 | Inpatient (IN) | payer MEDICARE, MEDICAID ==
[2020-02-20] MEDS ORDERED: Fentanyl 100 MCG/2 ML VIAL ONE (11:03)
[2020-02-20] MEDS ORDERED: Ondansetron PF 4 MG/2 ML Vial ONE (11:03)
[2020-02-20 11:18] LABS: #Basophils 0.1 thou/uL (0.0-0.2); #Eosinphils 1.6 thou/uL (0.0-0.7); #Lymphocytes 1.7 thou/uL (1.20-3.40); #Monocytes 0.5 thou/uL (0.11-0.59); #Neutrophils 7.7 thou/uL (1.40-6.50); %Basophils 1.1 % (0.0-1.0); %Eosinophils 13.6 % (0.0-10.0); %Lymphocytes 14.5 % (21.0-51.0); %Neutrophils 66.8 % (42.0-75.0); Hemoglobin 11.2 g/dL (14.0-18.0); Mean Corpuscular HGB CONC 35.2 g/dL (32.0-36.0); Mean Corpuscular Hemoglobin 32.4 pg (27.0-31.0); Mean Platelet Volume 8.4 fL (7.4-10.4); Platelet Count 176 thou/uL (130-400); RBC Distribution Width 12.4 % (11.5-14.5); Red Blood Cell (RBC) Count 3.46 mill/uL (4.70-6.10); White Blood Cell (WBC) Count 11.5 thou/uL (4.8-10.8)
[2020-02-20 11:35] LABS: ALT (SGPT) 15 U/L (8-55); AST (SGOT) 14 U/L (5-34); Albumin 3.8 g/dL (3.4-4.8); Alkaline Phosphatase 77 U/L (40-110); Anion Gap 15 mmol/L (10-20); BUN (Urea Nitrogen) 32 mg/dL (8.4-25.7); Bilirubin, Total 0.3 mg/dL (0.2-1.2); Calc. Creatinine Clearance 0 mL/min (70-130); Calcium 8.7 mg/dL (7.8-10.44); Carbon Dioxide 23 mmol/L (23-31); Chloride 110 mmol/L (98-107); Estimated GFR-MDRD 28; Globulin 2.6 g/dL (2.4-3.5); Glucose 158 mg/dL (83-110); Potassium 4.5 mmol/L (3.5-5.1); Protein, Total 6.4 g/dL (5.8-8.1); Sodium 143 mmol/L (136-145)
--- NOTE | 2020-02-20 11:43 | RAD ---
RADIOGRAPH CHEST 1 VIEW: DATE: 02/20/2020 HISTORY: 74-year-old male with acute chest trauma from fall FINDINGS: There are no airspace densities, pulmonary edema, pneumothorax, or cardiomegaly. The lateral costophr enic angles are sharp. IMPRESSION: No acute cardiopulmonary findings.
--- NOTE | 2020-02-20 11:54 | CT ---
CT BRAIN NONCONTRAST: DATE: 02/20/2020 HISTORY: 74-year-old male status post acute head trauma from fall FINDINGS: There is no evidence of acute intra-axial or extra-axial hemorrhage. There is no midline shift or any other mass effect. There is no extra-axial fluid collection. There is no evidence of obstructive hydrocephalus. Calvarium is intact. There are low attenuation areas in the white matter. These are no nspecific, but in a patient of this age, they are probably chronic ischemic white matter changes due to microvascular atherosclerosis. Small old lacunar infarction at right basal ganglia/posterior l imb internal capsule. Small old lacunar infarction at junction between posterior limb of left internal capsule and left thalamus. No interval change overall since 02/04/2020. IMPRESSION: 1) No acute intracranial findings. 2)chronic ischemic white matter changes. 3) small old lacunar infarctions in bilateral deep costello nuclei.
--- NOTE | 2020-02-20 12:07 | RAD ---
RIGHT HIP 2 VIEWS: Date: 02/20/2020 HISTORY: Injury with pain. FINDINGS: No comparison studies. There is deformity of the femoral neck consistent with subcapital fracture and slight impaction and d isplacement. Degenerative changes at the right hip noted with spurring from the femoral head and acetabulum. Joint narrowing. IMPRESSION: Femoral neck fracture with mild displacement. POS: AGW
--- NOTE | 2020-02-20 12:09 | RAD ---
AP PELVIS: Date: 02/20/2020 HISTORY: Fall with injury to right hip. FINDINGS: Deformity of the right femoral neck consistent with right femoral neck fracture. Degenerative changes at both hips slightly more pronounced on the right. IMPRESSION: Acute right femoral neck fracture. POS: AGW
[2020-02-20 12:18] LABS: Prothrombin Time 13.6 sec (12.0-14.7)
[2020-02-20] MEDS ORDERED: Morphine 2 MG/ML VIAL SLOW IVP PRN (12:49)
[2020-02-20] MEDS ORDERED: Ondansetron PF 4 MG/2 ML Vial IVP PRN (12:49)
[2020-02-20] MEDS ORDERED: Dextrose 5% in Water 1,000 ML IV PRN (12:49)
[2020-02-20] MEDS ORDERED: Dextrose 50% Abboject 50 ML SYRINGE SLOW IVP PRN (12:49)
[2020-02-20] MEDS ORDERED: Sodium Chloride 0.9% 1,000 ML IV SCH ×2 (13:00→20:36)
[2020-02-20] MEDS ORDERED: Morphine 4 MG/ML VIAL ONE (13:16)
--- NOTE | 2020-02-20 13:27 | CON ---
DATE OF CONSULTATION: This is Mikel Burger PA-C dictating a report for Henry Boles MD. HISTORY OF PRESENT ILLNESS: We were asked by the ER to see the patient. The patient had just left the [facility], was getting on a bus to go to [place] in [place]. He has friends there and unfortunately fell, landing on his right hip. He states he has fairly significant pain. He is not sure why he fell. He did not get dizzy, did not hit his head. Denies any numbness and tingling down his hip. He just has a lot of pain. The patient was admitted on 02/02 of this year for rule out stroke/TIAs. He was sent home on aspirin, and no blood thinners currently he did eat merino, eggs, and orange juice, but has had nothing since that time, and it was around 7 or 7:30, he is not quite sure of the time. PAST MEDICAL HISTORY: Positive for hypertension, hyperlipidemia, recurrent stroke/TIAs, diabetes, renal failure. PAST SURGICAL HISTORY: Denied. SOCIAL HISTORY: Very rare drinker. Smokes less than pack of cigarettes a day. I asked the patient where he lives, he said he is homeless. He is a retired heavy truck technician. FAMILY HISTORY: Noncontributory. ALLERGIES: NO KNOWN DRUG ALLERGIES. MEDICATIONS: 1. Metformin. 2. T3s. 3. Amlodipine. 4. Atorvastatin. 5. Hydralazine. 6. Isosorbide. 7. Lisinopril. 8. Aspirin. REVIEW OF SYSTEMS: He denies any chest pain or shortness of breath. No dizziness. Only positive complaint currently is right hip pain. Otherwise, review of systems that is positive or negative. PHYSICAL EXAMINATION: GENERAL: Well-nourished male, resting on a gurney in room 25 in the ER. No acute distress unless they move that right lower extremity. HEENT: Scalp atraumatic. Face symmetric. Tongue midline. NECK: Supple. Trachea midline. UPPER EXTREMITIES: Equal size, shape, symmetry. Normal bulk and tone. Respirations 16. No acute distress. PELVIS: No pain with rocking, but does increase right hip pain. LOWER EXTREMITIES: Also equal size, shape, symmetry. Normal bulk and tone with the exception of some mild edema over the right hip. He is able to move both legs fairly well from the knees down. Sensations are equal as are DP, PT pulses. ASSESSMENT: 1. Multiple health issues. 2. Fall with right hip pain. PLAN: I spoke with the patient. He will need to be cleared by Trauma, and then he will need 8 hours of n.p.o. status. I informed him he may go later this afternoon or possibly tomorrow morning, which either way he is happy. I told him we can keep his pain under control while he was admitted if we plan on doing tomorrow. I went over the surgery, we could either do some percutaneous screws, hemiarthroplasty, or even a total hip arthroplasty. I went over the risks and benefits of the surgeries, explained that bleeding, infection is rare. We will minimize bleeding and give him antibiotics before and after surgery, went over the major risks which would be blood clots, stroke, heart attack, but he is going to be admitted by Trauma and they will work on his medical management. Again, he denies any dizziness with this fall, but due to his past history, he may need a little more of a medical workup before he was cleared. The patient understands the plan and he is amenable to go forth with surgery once cleared. Job ID: [id number] [facility]
[2020-02-20] MEDS ORDERED: traMADol HCl 50 MG TAB PO SCH (13:30)
[2020-02-20 13:45] LABS: Magnesium 1.9 mg/dL (1.6-2.6); Phosphorus 3.6 mg/dL (2.3-4.7)
[2020-02-20] MEDS ORDERED: CEFAZOLIN 2 GM in Premix Bag 1 BAG IVPB SCH (14:30)
[2020-02-20] MEDS: Acetaminophen 500 MG TAB PO SCH ×3 (15:35→23:45)
[2020-02-20 15:40] VITALS: BMI 17.6
[2020-02-20] MEDS: Ferrous Sulfate 325 MG TAB PO SCH (19:37)
[2020-02-20] MEDS ORDERED: PROVENTIL INHALER 6.7 G (200 INHALATIONS) INH PRN (20:34)
[2020-02-20] MEDS: Cyclobenzaprine 10 MG TAB PO PRN (20:36)
[2020-02-20] MEDS: Ascorbic Acid 500 mg Chewable Tablet PO SCH (20:37)
[2020-02-20] MEDS: Atorvastatin Calcium 40 MG TAB PO SCH (20:42)
[2020-02-20] MEDS: Senokot S 8.6-50 MG TAB PO SCH (20:47)
[2020-02-20] MEDS ORDERED: Lisinopril 5 MG TAB PO SCH (21:00)
[2020-02-20] MEDS ORDERED: Mometasone 200 MCG/Formoterol 5 MCG 120 PUFF INHALER INH SCH (21:00)
[2020-02-20] MEDS ORDERED: hydrALAZINE 25 MG TAB PO SCH (21:00)
--- NOTE | 2020-02-20 21:14 | HP ---
REQUESTING PHYSICIAN: Dr. Pugh. CONSULTS: Orthopedic Surgery, Dr. Boles. CHIEF COMPLAINT: Lightheadedness, ground level fall, right hip pain. HISTORY OF PRESENT ILLNESS: This is a 74-year-old gentleman with a past medical history of strokes, who was recently admitted here at [facility] on 02/03/2020 for hypertensive emergency and a TIA versus stroke. The patient also has a history of chronic renal failure, stage 3. The patient states that he has been homeless, living at the [facility] for the last two weeks. The patient was attempting to get on a bus to go stay with a friend in [place], when he felt lightheaded and fell, landing on his right hip. The patient denies hitting his head or losing consciousness. The patient denies any chest pain or shortness of breath. The patient states that he is able to walk at least 1 to 2 blocks without getting short of breath. The patient states that he did take his blood pressure medicines this morning. The patient was told to take a full dose aspirin, but has not been taking that since discharge. The patient denies being on any blood thinners. The patient last ate this morning around 7, which included merino, eggs, and orange juice. The patient denies any other injuries other than right hip pain. The patient denies any recent cough, cold, fever, or chills. The patient did have an EEG done at his last admission showing no seizure activity with some moderate generalized nonspecific cerebral dysfunction. The patient also had an MRI of the brain without contrast that showed small-vessel disease. The patient also had a CTA of the head and neck, which showed some atherosclerosis, but no evidence of stenosis or blockage. REVIEW OF SYSTEMS: A 10-point review of systems is negative unless otherwise indicated in the above HPI. PAST MEDICAL HISTORY: Hypertension; hyperlipidemia; recurrent strokes; diabetes; chronic renal failure, stage 3. PAST SURGICAL HISTORY: Denies. SOCIAL HISTORY: Reports drinking alcohol approximately twice a month, denies illicit drug use, smokes half a pack a day for more than 40 years, the patient is currently homeless, living at [facility]. The patient is a retired diesel truck mechanic, who retired 10 years ago. ALLERGIES: NO KNOWN DRUG ALLERGIES. CURRENT MEDICATIONS: 1. Albuterol inhaler. 2. Norvasc 10 mg p.o. daily. 3. Atorvastatin 40 mg p.o. at bedtime. 4. Hydralazine 50 mg p.o. 3 times a day. 5. Isosorbide 30 mg p.o. daily. 6. Lisinopril 5 mg p.o. b.i.d. 7. Metformin 500 mg p.o. q.a.m. with meals. 8. Dulera inhaler b.i.d. OBJECTIVE: VITAL SIGNS: Temperature 97.7, pulse 72, respirations 20, blood pressure 147/66, and SpO2 of 94% on room air. GENERAL: Well-nourished elderly male, in no acute distress. HEENT: Pupils are equal bilateral, oropharynx is clear. NECK: Normal range of motion, no cervical spine tenderness, no JVD, trachea midline. RESPIRATORY: Bilateral breath sounds clear, no wheezing, rales, or rhonchi, respirations are even and nonlabored. CARDIAC: Regular rate, regular rhythm, no murmurs. ABDOMEN: Soft, nontender, nondistended. EXTREMITIES: Moves all extremities, neurovascularly intact x4, no pedal edema, strength is 5/5 in all extremities. Tenderness over right hip. SKIN: No wounds or rashes noted, warm, pink, and dry. NEUROLOGIC: No focal deficits. GCS 15. LABORATORY DATA: WBC 11.5, RBC 3.46, hemoglobin 11.2, hematocrit 31.9, and platelets 176. PT 13.6, INR 1.0, and APTT 30.0. Sodium 143, potassium 4.5, chloride 110, BUN 32, creatinine 2.28, estimated GFR 28, glucose 158, phosphorus 3.6, and magnesium 1.9. AST 14, ALT 15, and alkaline phos 77. Troponin I less than 0.010. DIAGNOSTICS: 12-lead EKG; sinus rhythm, no T-wave or ST-segment abnormalities. Heart rate 78. Chest x-ray, impression; no acute cardiopulmonary findings. Hip x-ray, impression; femoral neck fracture with mild displacement. Pelvis x-ray, impression; acute right femoral neck fracture. Brain CT, impression; no acute intracranial findings, chronic ischemic white matter changes, small old lacunar infarctions and bilateral deep costello nuclei. ASSESSMENT: 1. Ground level fall. 2. Lightheadedness. 3. Right femoral neck fracture. 4. Acute on chronic kidney disease, stage 3, baseline creatinine 2.0. 5. History of hypertension, diabetes, hyperlipidemia, noncompliance with medications. PLAN: Admit to the surgical floor. Pain management. N.p.o. after midnight for plans for Orthopedic Surgery to repair right hip fracture. Maintenance IV fluids. Diabetic diet before surgery. We will obtain a urinalysis. We will continue to work up why the patient became lightheaded. We will continue to monitor renal function. Neb treatments p.r.n. PT/OT to evaluate and treat postop. We will place a post-acute screen as the patient will likely need inpatient rehab. The plan was discussed with the attending, who agrees. Job ID: [id number]
[2020-02-20] MEDS ORDERED: Insulin Regular 300 UNITS/3 ML VIAL SC PRN ×2 (23:22)
--- NOTE | 2020-02-21 00:13 | PRG ---
DATE OF SERVICE: 02/20/2020 SUBJECTIVE: The patient was seen this evening during rounds. He was lying in bed, resting comfortably and asleep with no signs of acute distress. Nursing reported he had no acute events. He is pending OR tomorrow with Orthopedic Surgery for fixation of his right femoral neck fracture. Home medications were restarted as indicated with hold parameters. OBJECTIVE: VITAL SIGNS: Temperature 98.6, pulse 80, respirations 12, oxygen saturation 93% on 2 L nasal cannula, blood pressure 158/67. GENERAL: Elderly male, lying in bed, resting comfortably, and asleep with no signs of acute distress. PULMONARY: Equal chest rise and fall. No signs of acute respiratory distress. ASSESSMENT: 1. Status post fall from standing. 2. Right femoral neck fracture. 3. Acute kidney injury on chronic kidney disease, 3. 4. History of hypertension, multiple strokes, chronic kidney disease, TIA, tobacco use, and diabetes. PLAN: Continue current diet. N.p.o. at midnight. Continue normal saline at 100 an hour for a total of 1 L. We will start the patient on insulin sliding scale with glucose checks. He is going to the OR tomorrow with Orthopedic Surgery for fixation of his right femoral neck fracture. He will likely need placement at acute rehab facility or [facility] facility after he works with Physical Therapy postoperatively. Job ID: [id number]
[2020-02-21] MEDS: Acetaminophen 500 MG TAB PO SCH ×4 (03:51→22:03)
[2020-02-21] MEDS: traMADol HCl 50 MG TAB PO SCH ×2 (03:52→16:59)
[2020-02-21 04:38] LABS: Bilirubin Negative (Negative); Blood, Urine Negative (Negative); Glucose, Urine (Dipstick) Negative (Negative); Ketone, Urine Negative (Negative); Leukocyte Negative (Negative); Nitrite Negative (Negative); Protein, Urine (Dipstick) Trace mg/dL (Neg-Trace); Urobilinogen 0.2 mg/dL (Less than 2)
[2020-02-21 04:49] LABS: Amphetamine Not Detected (NotDetected); Barbiturates Screen Not Detected (NotDetected); Benzodiazepine Screen Not Detected (NotDetected); Cocaine Metabolite Screen Not Detected (NotDetected); Medtox Control Line Valid? VALID (VALID); Medtox Reader # READER 4; Methadone Not Detected (NotDetected); Methamphetamine Not Detected (NotDetected); Opiate Screen Detected (NotDetected); Oxycodone Screen Not Detected (NotDetected); Phencyclidine (PCP) Not Detected (NotDetected); THC/Cannabinoid Screen Not Detected (NotDetected); Tricyclic Screen Not Detected (NotDetected)
[2020-02-21 04:51] LABS: Clarity Clear (Clear)
[2020-02-21 04:52] LABS: Urine Culture Reflex No No
[2020-02-21 05:59] LABS: #Basophils 0.1 thou/uL (0.0-0.2); #Eosinphils 2.6 thou/uL (0.0-0.7); #Lymphocytes 1.8 thou/uL (1.20-3.40); #Monocytes 0.5 thou/uL (0.11-0.59); #Neutrophils 7.2 thou/uL (1.40-6.50); %Basophils 0.7 % (0.0-1.0); %Eosinophils 21.6 % (0.0-10.0); %Lymphocytes 14.5 % (21.0-51.0); %Monocytes 3.9 % (0.0-10.0); %Neutrophils 59.5 % (42.0-75.0); Hemoglobin 9.8 g/dL (14.0-18.0); Mean Corpuscular HGB CONC 34.2 g/dL (32.0-36.0); Mean Corpuscular Hemoglobin 31.6 pg (27.0-31.0); Mean Corpuscular Volume 92.3 fL (78.0-98.0); Mean Platelet Volume 9.1 fL (7.4-10.4); Platelet Count 127 thou/uL (130-400); RBC Distribution Width 12.2 % (11.5-14.5); White Blood Cell (WBC) Count 12.1 thou/uL (4.8-10.8)
[2020-02-21 06:17] LABS: Phosphorus 3.5 mg/dL (2.3-4.7)
[2020-02-21 06:18] LABS: Anion Gap 11 mmol/L (10-20); BUN (Urea Nitrogen) 31 mg/dL (8.4-25.7); Calc. Creatinine Clearance 27 mL/min (70-130); Calcium 8.4 mg/dL (7.8-10.44); Carbon Dioxide 22 mmol/L (23-31); Chloride 113 mmol/L (98-107); Estimated GFR-MDRD 32; Glucose 81 mg/dL (83-110); Magnesium 1.9 mg/dL (1.6-2.6); Potassium 4.2 mmol/L (3.5-5.1); Sodium 142 mmol/L (136-145)
[2020-02-21] MEDS: Mometasone 200 MCG/Formoterol 5 MCG 120 PUFF INHALER INH SCH ×2 (07:00→19:40)
[2020-02-21] MEDS: Famotidine 20 MG TAB PO SCH (07:43)
[2020-02-21] MEDS: Senokot S 8.6-50 MG TAB PO SCH ×2 (07:43→22:04)
[2020-02-21] MEDS: Ferrous Sulfate 325 MG TAB PO SCH ×2 (07:43→17:02)
[2020-02-21] MEDS: Ascorbic Acid 500 mg Chewable Tablet PO SCH ×2 (07:43→22:05)
[2020-02-21] MEDS: Amlodipine 10 MG TAB PO SCH (07:45)
[2020-02-21 07:53] LABS: SARS-CoV-2 NAA Rapid Test Not Detected (NotDetected)
[2020-02-21] MEDS ORDERED: Magnesium 2 GM/50 ML 2 GM in Premix Bag 1 BAG IVPB SCH (08:00)
[2020-02-21] MEDS ORDERED: Fentanyl 100 MCG/2 ML VIAL ONE ×2 (09:17→11:18)
[2020-02-21] MEDS ORDERED: PROPOFOL 200 MG/20 ML VIAL ONE (10:08)
[2020-02-21] MEDS ORDERED: Lidocaine 1% PF 5 ML VIAL ONE (10:08)
[2020-02-21] MEDS ORDERED: Ondansetron PF 4 MG/2 ML Vial ONE (10:08)
[2020-02-21] MEDS ORDERED: Metoclopramide HCl 10 MG/2 ML VIAL ONE (10:08)
[2020-02-21] MEDS ORDERED: Promethazine HCl 25 MG/ML VIAL SLOW IVP PRN (10:11)
[2020-02-21] MEDS ORDERED: Meperidine HCl/PF 25 MG/ML VIAL SLOW IVP PRN (10:11)
[2020-02-21] MEDS ORDERED: HYDROmorphone 2 MG/ML VIAL SLOW IVP PRN (10:11)
[2020-02-21] MEDS ORDERED: Promethazine HCl 25 MG/ML VIAL IM PRN (10:11)
[2020-02-21] MEDS ORDERED: SUGAMMADEX SODIUM 200 MG/2 ML VIAL ONE (10:32)
--- NOTE | 2020-02-21 11:50 | OP ---
DATE OF PROCEDURE: 02/21/2020 PROCEDURE PERFORMED: Right hip hemiarthroplasty. PREOPERATIVE DIAGNOSIS: Right hip femoral neck fracture. POSTOPERATIVE DIAGNOSIS: Right hip femoral neck fracture. COMPLICATIONS: None. ESTIMATED BLOOD LOSS: 100 mL. FINANCIAL ANALYSIS MANAGER: Reyna Connell PA-C IMPLANTS: DePuy Baker basic press-fit stem size 6, +5 femoral head, 55 mm bipolar shell. INDICATIONS: Mr. Kam is a 74-year-old male, who has fallen and fractured his right femoral neck. He has been indicated for hemiarthroplasty of the hip to restore anatomic position, allowed early mobility, provide pain relief, and prevent complications of prolonged bedrest. Risks have been reviewed. Risks to include infection, hip instability, wound complication, and others. DESCRIPTION OF PROCEDURE: Mr. Kam was identified in the preoperative holding area. His correct extremity was marked. He was carried to the operating room. He was positioned supine. General anesthesia was induced. A multidisciplinary time-out was performed. The right lower extremity was prepped and draped in sterile fashion. We began the procedure with a posterior approach to the hip. We dissected down through the subcutaneous tissues to the fascia, which was opened. We split the underlying fascia. At this point, we exposed the short external rotators of the hip and the capsule. We preserved the piriformis tendon. We transected the gemelli musculature and performed a capsulotomy. At this point, we removed the broken femoral head as well as bony fragments. We made a new osteotomy of the femoral neck. Next, we prepared the femoral canal with appropriate reaming followed by broaching. We then trialed a +5 length, it was appropriate for stability. The patient had good range of motion. We removed the trial components. We thoroughly irrigated with copious lavage. We then impacted our final hip stem and bipolar shell. At this point, we again reduced the hip. We repaired the capsule and short external rotators through drill holes with Ethibond suture. We closed in layers. A sterile dressing was applied. The assistant womens volleyball coach surgeon was responsible for positioning the patient, preparing the injured extremity, applying the tourniquet, and assisting in preparation for surgery. The assistant womens volleyball coach was instrumental in reducing the injured limb by applying traction and reduction maneuvers as well as holding retractors and reduction tools. The assistant womens volleyball coach also was instrumental in assisting in exposure throughout the operation using appropriate retractors. The assistant womens volleyball coach participated in closure of the operative site as well as dressing application and splint application. Job ID: [id number]
--- NOTE | 2020-02-21 12:22 | RAD ---
AP view of the pelvis INDICATION: Status post hemiarthroplasty COMPARISON: Prior exam dated February 20, 2020 FINDINGS: Bones: No acute fracture or subluxation is evident. Bone mineralization appears within normal limits. Hips: Since the comparison examination there has been interval placement of a right hip endoprosthesi s. The prosthetic component projects in the expected position. There is intra-articular and periarticular soft tissue gas. There are surgical skin gino overlying the anterolateral aspect of the right hip. SI joints and symphysis pubis: Normal appearing. Intrapelvic contents: Within normal limits. IMPRESSION: Interval right hip hemiarthroplasty. No radiographic evidence of immediate complication.
--- NOTE | 2020-02-21 12:26 | RAD ---
EXAM: XR Hip Rt 1 View DATE: 02/21/2020 11:40 AM INDICATION: Postop right hip endoprosthesis placement COMPARISON: None. FINDING: The right hip endoprosthesis projects in the expected position without gross evidence of im mediate complication. IMPRESSION:Right hip hemiarthroplasty.
--- NOTE | 2020-02-21 14:32 | PRG ---
DATE OF SERVICE: 02/21/2020 SUBJECTIVE: The patient was seen on the surgical floor just returning from the postanesthesia care unit. The patient is currently awake, alert, sitting up in bed eating his lunch. The patient denies any pain at this time. The patient is status post right hemiarthroplasty. OBJECTIVE: VITAL SIGNS: Temperature 97.3, pulse 85, respirations 16, SpO2 of 95% on 3 L nasal cannula, blood pressure 159/53. GENERAL: Elderly male, sitting up in bed, in no acute distress. RESPIRATORY: Good inspiratory and expiratory effort. No distress. CARDIAC: Regular rate and regular rhythm. No pedal edema. ABDOMEN: Soft, nontender, and nondistended. EXTREMITIES: Neurovascularly intact x4. Right hip dressing is clean, dry, and intact. LABORATORY DATA: WBC 12.1, RBC 3.10, hemoglobin 9.8, hematocrit 28.6, platelets 127. Sodium 142, potassium 4.2, chloride 113, BUN 31, creatinine 2.03, estimated GFR 32, glucose 82, phosphorus 3.5, calcium 8.4, magnesium 1.8. DIAGNOSTICS: No new diagnostics to review today. ASSESSMENT: 1. Status post fall from standing. 2. Right femoral neck fracture, status post right hemiarthroplasty. 3. Acute kidney injury on chronic kidney disease stage 3, improved. 4. History of hypertension, multiple strokes, chronic kidney disease stage 3, transient ischemic attack, tobacco use, and diabetes. PLAN: Continue supportive care and pain regimen. Diabetic diet as tolerated. Physical and occupational therapy. Case Management to work on placement for continued physical therapy. Pending echocardiogram for lightheadedness, which caused him to fall. Continue iron and vitamin C for anemia. Job ID: [id number]
[2020-02-21] MEDS: CEFAZOLIN 2 GM in Premix Bag 1 BAG IVPB SCH (16:59)
[2020-02-21] MEDS ORDERED: hydrALAZINE 25 MG TAB PO SCH (22:00)
[2020-02-21] MEDS: Atorvastatin Calcium 40 MG TAB PO SCH (22:04)
[2020-02-21] MEDS: hydrALAZINE 25 MG TAB PO SCH (22:12)
[2020-02-21] MEDS ORDERED: Morphine 2 MG/ML VIAL SLOW IVP SCH (22:15)
--- NOTE | 2020-02-22 00:54 | PRG ---
DATE OF SERVICE: 02/21/2020 SUBJECTIVE: The patient was seen this evening during rounds. He was sitting up in bed, resting comfortably and asleep with no signs of acute distress. He is postoperative day 0 after fixation of his right femoral neck fracture. Nursing reports no acute events. OBJECTIVE: VITAL SIGNS: Temperature 98.1, pulse 82, respirations 16, oxygen saturation 94% on 3 L nasal cannula, blood pressure 154/64. GENERAL: Well-appearing elderly male, sitting up in bed, asleep with no signs of acute distress. PULMONARY: Equal chest rise and fall. No signs of acute respiratory distress. ASSESSMENT: 1. Status post fall. 2. Right femoral neck fracture, status post repair. 3. Acute kidney injury on chronic kidney disease, 3, resolving. 4. History of diabetes, hypertension, multiple cerebrovascular accidents and transient ischemic attacks, chronic kidney disease, tobacco abuse. PLAN: Continue current diet and pain regimen. Continue physical and occupational therapy. Start the patient's home amlodipine, hydralazine, and lisinopril. Start physical and occupational therapy. The patient will likely need placement to acute rehab facility versus custodial facility. Job ID: [id number]
[2020-02-22] MEDS: CEFAZOLIN 2 GM in Premix Bag 1 BAG IVPB SCH (01:35)
[2020-02-22] MEDS: Acetaminophen 500 MG TAB PO SCH ×4 (01:47→20:28)
[2020-02-22] MEDS: Cyclobenzaprine 10 MG TAB PO PRN ×2 (01:48→11:56)
[2020-02-22] MEDS: traMADol HCl 50 MG TAB PO SCH ×2 (03:33→15:05)
[2020-02-22 05:03] LABS: Hemoglobin 8.9 g/dL (14.0-18.0); Mean Corpuscular HGB CONC 33.6 g/dL (32.0-36.0); Mean Corpuscular Hemoglobin 31.5 pg (27.0-31.0); Mean Corpuscular Volume 93.8 fL (78.0-98.0); Mean Platelet Volume 8.8 fL (7.4-10.4); Platelet Count 128 thou/uL (130-400); RBC Distribution Width 12.1 % (11.5-14.5); Red Blood Cell (RBC) Count 2.83 mill/uL (4.70-6.10); White Blood Cell (WBC) Count 10.8 thou/uL (4.8-10.8)
[2020-02-22 05:27] LABS: Anion Gap 13 mmol/L (10-20); BUN (Urea Nitrogen) 33 mg/dL (8.4-25.7); Calc. Creatinine Clearance 22 mL/min (70-130); Calcium 8.1 mg/dL (7.8-10.44); Carbon Dioxide 22 mmol/L (23-31); Chloride 110 mmol/L (98-107); Estimated GFR-MDRD 26; Glucose 155 mg/dL (83-110); Magnesium 2.1 mg/dL (1.6-2.6); Phosphorus 3.2 mg/dL (2.3-4.7); Potassium 4.3 mmol/L (3.5-5.1); Sodium 141 mmol/L (136-145)
[2020-02-22] MEDS: hydrALAZINE 25 MG TAB PO SCH ×3 (08:42→20:30)
[2020-02-22] MEDS: Amlodipine 10 MG TAB PO SCH (08:43)
[2020-02-22] MEDS: Famotidine 20 MG TAB PO SCH (08:43)
[2020-02-22] MEDS: Ferrous Sulfate 325 MG TAB PO SCH ×2 (08:43→16:42)
[2020-02-22] MEDS: Senokot S 8.6-50 MG TAB PO SCH ×2 (08:43→20:30)
[2020-02-22] MEDS: Ascorbic Acid 500 mg Chewable Tablet PO SCH ×2 (08:43→20:29)
[2020-02-22] MEDS ORDERED: Lisinopril 5 MG TAB PO SCH (09:00)
[2020-02-22] MEDS ORDERED: Sodium Chloride 0.9% 500 ML IV SCH (10:00)
[2020-02-22] MEDS: Mometasone 200 MCG/Formoterol 5 MCG 120 PUFF INHALER INH SCH ×2 (10:49→18:40)
--- NOTE | 2020-02-22 12:55 | PRG ---
DATE OF SERVICE: 02/22/2020 SUBJECTIVE: The patient is seen on the surgical floor, awake and alert, in no distress. He is postoperative day #1 status post right hemiarthroplasty. The patient continues to tolerate a diabetic diet. The patient reports some pain earlier when he participated with Physical Therapy, but denies any current pain while sitting in bed. The patient's urinary output is adequate for patient's age and weight. OBJECTIVE: VITAL SIGNS: Temperature 98.2, pulse 72, respirations 16, SpO2 of 93% on 3 L nasal cannula, and blood pressure 166/66. GENERAL: Elderly male, awake and alert, in no distress. RESPIRATORY: Good inspiratory and expiratory effort. Positive cough, no distress. CARDIAC: Regular rate and regular rhythm. No pedal edema. ABDOMEN: Soft, nontender, nondistended. EXTREMITIES: Neurovascularly intact x4. Right hip dressing is clean, dry, and intact. LABORATORY DATA: WBC 10.8, RBC 2.83, hemoglobin 8.9, hematocrit 26.6, and platelets 128. Sodium 141, potassium 4.3, chloride 110, carbon dioxide 22, BUN 33, creatinine 2.44, estimated GFR 26, glucose 155, and calcium 8.1. Phosphorus 3.2. Magnesium 2.1. DIAGNOSTIC STUDIES: Echocardiogram, impression: Ejection fraction estimated at 55% to 60% with diastolic dysfunction. ASSESSMENT: 1. Status post fall from standing. 2. Right femoral neck fracture, postoperative day #1 of right hemiarthroplasty. 3. Acute kidney injury on chronic kidney disease, stage 3. 4. History of hypertension, multiple strokes. 5. Chronic kidney disease, stage 3. 6. Transient ischemic attacks. 7. Tobacco use. 8. Diabetes. PLAN: Continue supportive care and pain regimen. We will give the patient a 500 mL normal saline bolus over 2 hours for his prerenal ELIZABETH. Encourage intake. Continue physical and occupational therapy. Continue iron and vitamin C for anemia. Encourage the use of incentive spirometer and pulmonary toilet as the patient is requiring oxygen. We will schedule neb treatments. The plan was discussed with the patient who agrees. The patient is pending placement for continued physical and occupational therapy. Job ID: [id number]
--- NOTE | 2020-02-22 13:15 | EKG ---
Test Reason : Blood Pressure : / mmHG Vent. Rate : 078 BPM Atrial Rate : 078 BPM P-R Int : 174 ms QRS Dur : 092 ms QT Int : 414 ms P-R-T Axes : 037 008 081 degrees QTc Int : 471 ms Normal sinus rhythm Septal infarct , age undetermined Abnormal ECG No change from 02/03/2020 Confirmed by ARACELIS CRAWFORD DO ([id number]), fan mail editor SHANTELL ABRAHAM ([id number]) on 02/22/2020 1:14:40 PM Referred By: Confirmed By:ARACELIS CRAWFORD DO
[2020-02-22] MEDS ORDERED: cloNIDine 0.1 MG TAB PO SCH (15:30)
[2020-02-22] MEDS ORDERED: Morphine 2 MG/ML VIAL SLOW IVP PRN (16:14)
[2020-02-22] MEDS ORDERED: traMADol HCl 50 MG TAB PO SCH (16:30)
[2020-02-22] MEDS: Gabapentin 100 MG CAP PO SCH (16:36)
[2020-02-22] MEDS: Lisinopril 5 MG TAB PO SCH (20:29)
[2020-02-22] MEDS ORDERED: Acetaminophen/Codeine 30-300mg Tablet PO PRN (20:30)
[2020-02-22] MEDS: Atorvastatin Calcium 40 MG TAB PO SCH (20:30)
[2020-02-22] MEDS: Heparin 5,000 UNITS/ML VIAL SC SCH (20:41)
[2020-02-22] MEDS: Acetaminophen 325 MG TAB PO SCH (20:58)
[2020-02-22] MEDS ORDERED: Gabapentin 100 MG CAP PO SCH (21:00)
--- NOTE | 2020-02-23 02:42 | PRG ---
DATE OF SERVICE: 02/22/2020 SUBJECTIVE: Patient was seen this evening during rounds. He was sitting up in bed with no signs of acute distress. He is now postop day #1, status post fixation of his right femoral neck fracture. He reports working with Physical Therapy and walking with a walker. OBJECTIVE: VITAL SIGNS: Temperature 98.7, pulse 85, respirations 18, oxygen saturation 97% on 3 L nasal cannula, blood pressure 110/52. GENERAL: Well-appearing elderly male, sitting up in bed eating chips with no signs of acute distress. PULMONARY: Equal chest rise and fall. No signs of acute respiratory distress. ASSESSMENT: 1. Status post fall from standing. 2. Right femoral neck fracture, status post repair. 3. Acute kidney injury on chronic kidney disease stage 3, worsening. 4. History of diabetes, hypertension, multiple strokes and cerebrovascular accidents. PLAN: Continue current diet and pain regimen. Continue physical and occupational therapy. Patient received 500 mL of IV fluids for worsening acute kidney injury earlier today. Repeat blood work in the morning. Job ID: [id number]
[2020-02-23] MEDS: Acetaminophen 325 MG TAB PO SCH ×4 (03:32→20:05)
[2020-02-23] MEDS: Gabapentin 100 MG CAP PO SCH ×2 (03:33→16:56)
[2020-02-23] MEDS ORDERED: traMADol HCl 50 MG TAB PO SCH (04:00)
[2020-02-23 05:06] LABS: #Basophils 0.1 thou/uL (0.0-0.2); #Eosinphils 2.1 thou/uL (0.0-0.7); #Monocytes 0.6 thou/uL (0.11-0.59); #Neutrophils 6.4 thou/uL (1.40-6.50); %Basophils 0.7 % (0.0-1.0); %Eosinophils 21.1 % (0.0-10.0); %Lymphocytes 9.5 % (21.0-51.0); %Monocytes 5.7 % (0.0-10.0); %Neutrophils 63.1 % (42.0-75.0); Hemoglobin 8.1 g/dL (14.0-18.0); Mean Corpuscular HGB CONC 33.2 g/dL (32.0-36.0); Mean Corpuscular Hemoglobin 31.8 pg (27.0-31.0); Mean Corpuscular Volume 95.7 fL (78.0-98.0); Mean Platelet Volume 9.1 fL (7.4-10.4); Platelet Count 131 thou/uL (130-400); RBC Distribution Width 12.1 % (11.5-14.5); Red Blood Cell (RBC) Count 2.56 mill/uL (4.70-6.10); White Blood Cell (WBC) Count 10.1 thou/uL (4.8-10.8)
[2020-02-23 05:31] LABS: Anion Gap 12 mmol/L (10-20); BUN (Urea Nitrogen) 31 mg/dL (8.4-25.7); Calc. Creatinine Clearance 23 mL/min (70-130); Calcium 8.3 mg/dL (7.8-10.44); Carbon Dioxide 23 mmol/L (23-31); Chloride 110 mmol/L (98-107); Estimated GFR-MDRD 28; Glucose 106 mg/dL (83-110); Magnesium 2.1 mg/dL (1.6-2.6); Phosphorus 3.2 mg/dL (2.3-4.7); Potassium 4.3 mmol/L (3.5-5.1); Sodium 141 mmol/L (136-145)
[2020-02-23] MEDS: Mometasone 200 MCG/Formoterol 5 MCG 120 PUFF INHALER INH SCH ×2 (06:37→19:02)
[2020-02-23] MEDS: Famotidine 20 MG TAB PO SCH (09:00)
[2020-02-23] MEDS: Senokot S 8.6-50 MG TAB PO SCH ×2 (09:00→20:08)
[2020-02-23] MEDS: Heparin 5,000 UNITS/ML VIAL SC SCH ×2 (09:00→20:13)
[2020-02-23] MEDS: Ferrous Sulfate 325 MG TAB PO SCH ×2 (09:00→16:56)
[2020-02-23] MEDS: Ascorbic Acid 500 mg Chewable Tablet PO SCH ×2 (09:00→20:07)
[2020-02-23] MEDS: hydrALAZINE 25 MG TAB PO SCH ×3 (09:01→20:08)
[2020-02-23] MEDS: Amlodipine 10 MG TAB PO SCH (09:01)
[2020-02-23] MEDS: Lisinopril 5 MG TAB PO SCH ×2 (09:03→20:07)
--- NOTE | 2020-02-23 10:56 | RAD ---
EXAM: Chest one view: HISTORY: Injury, pneumonia COMPARISON: 02/20/2020 FINDINGS: Evidence for posterior lateral right rib fractures at the sixth and seventh ribs appear to be old. Heart size: Within normal limits. Lungs: Clear of acute process. No evidence for confluent lobar pneumonia, significant pleural effusion, acute edema, or pneumothorax , or other significant acute process. IMPRESSION: No significant acute intrathoracic disease. Stable exam.
[2020-02-23] MEDS: Acetaminophen/Codeine 30-300mg Tablet PO SCH ×2 (14:42→20:06)
[2020-02-23] MEDS: Atorvastatin Calcium 40 MG TAB PO SCH (20:07)
--- NOTE | 2020-02-23 20:10 | PRG ---
DATE OF SERVICE: 02/23/2020 SUBJECTIVE: The patient was seen during morning rounds on the surgical floor, awake, alert, sitting up in chair. The patient just finished his breakfast. The patient continues to have a good appetite. The patient did work with Physical Therapy earlier and reports moderate amount of pain. The patient also reports some mild shortness of breath. High temp overnight was 100.0. The patient is using his incentive spirometer, but only pulling 1000 mL. The patient is postop day #2, status post right hip hemiarthroplasty. OBJECTIVE: VITAL SIGNS: Temperature 100.0, pulse 88, respirations 16, SpO2 of 95% on 2 L nasal cannula, blood pressure 165/54. GENERAL: Elderly male, awake, alert, in no distress. HEENT: Head is atraumatic and normocephalic. RESPIRATORY: Good inspiratory and expiratory effort. Mildly prolonged expiratory phase. No distress. CARDIAC: Regular rate. Regular rhythm. No pedal edema. ABDOMEN: Soft, nontender, nondistended. EXTREMITIES: Neurovascularly intact x4. NEUROLOGIC: GCS 15. LABORATORY DATA: WBC 10.1, RBC 2.56, hemoglobin 8.1, hematocrit 24.5, platelets 131. Sodium 141, potassium 4.3, chloride 110, BUN 31, creatinine 2.31, estimated GFR 28, glucose 106, calcium 8.3, phosphorus 3.2, magnesium 2.1. DIAGNOSTIC DATA: Chest x-ray, impression, evidence for posterolateral right rib fractures at the 6th and 7th ribs appear to be old. Heart size within normal limits. Lungs are clear of any acute process. No evidence of confluent lobar pneumonia, no pleural effusion, no pneumothorax. ASSESSMENT: 1. Status post fall from standing. 2. Right femoral neck fracture postop day #2. 3. Right hemiarthroplasty. 4. Acute kidney injury on chronic kidney disease, stage 3, mildly improved. 5. History of hypertension, multiple strokes, chronic kidney disease stage 3, TIAs, tobacco use, and diabetes. PLAN: Continue pain regimen and supportive care. Continue diabetic diet as tolerated. Continue aggressive pulmonary toilet with the use of incentive spirometer every hour while awake. Sputum culture is pending. Waiting insurance approval for placement to [facility] for continued rehab. The plan was discussed with the patient, who agrees. Job ID: [id number]
--- NOTE | 2020-02-24 00:08 | PRG ---
DATE OF SERVICE: 02/23/2020 SUBJECTIVE: The patient was seen this evening during rounds. He was lying flat on his back, resting comfortably and asleep with no signs of acute distress. Nursing reported no acute events. OBJECTIVE: VITAL SIGNS: Temperature 99.1, pulse 88, respirations 16, oxygen saturation 96% on 2 L nasal cannula, blood pressure 153/63. ASSESSMENT: 1. Status post fall from standing. 2. Right femoral neck fracture, status post repair. 3. Acute kidney injury with chronic kidney disease 3, improving. 4. History of diabetes, hypertension, chronic kidney disease 3, transient ischemic attacks, and cerebrovascular accidents. PLAN: Continue current diet and pain regimen. Continue physical and occupational therapy. Continue to watch urinary output. Repeat blood work in the morning. Reassess kidney function. The patient to be up in chair daily. He is pending discharge to rehab versus SNF facility. He is ready for discharge tomorrow if his kidney function continues to improve. Job ID: [id number]
[2020-02-24] MEDS: Acetaminophen 325 MG TAB PO SCH ×4 (02:29→20:16)
[2020-02-24] MEDS: Acetaminophen/Codeine 30-300mg Tablet PO SCH ×4 (02:30→20:17)
[2020-02-24] MEDS: Gabapentin 100 MG CAP PO SCH ×2 (04:24→16:50)
[2020-02-24 06:12] LABS: Anion Gap 14 mmol/L (10-20); BUN (Urea Nitrogen) 32 mg/dL (8.4-25.7); Calc. Creatinine Clearance 23 mL/min (70-130); Calcium 8.2 mg/dL (7.8-10.44); Carbon Dioxide 22 mmol/L (23-31); Chloride 107 mmol/L (98-107); Estimated GFR-MDRD 27; Glucose 88 mg/dL (83-110); Phosphorus 3.9 mg/dL (2.3-4.7); Potassium 4.4 mmol/L (3.5-5.1); Sodium 139 mmol/L (136-145)
[2020-02-24] MEDS: Senokot S 8.6-50 MG TAB PO SCH ×2 (08:02→20:16)
[2020-02-24] MEDS: Ascorbic Acid 500 mg Chewable Tablet PO SCH ×2 (08:02→20:16)
[2020-02-24] MEDS: Famotidine 20 MG TAB PO SCH (08:02)
[2020-02-24] MEDS: Ferrous Sulfate 325 MG TAB PO SCH ×2 (08:03→16:51)
[2020-02-24] MEDS: Amlodipine 10 MG TAB PO SCH (08:05)
[2020-02-24] MEDS: Mometasone 200 MCG/Formoterol 5 MCG 120 PUFF INHALER INH SCH ×2 (08:07→18:27)
[2020-02-24] MEDS: Heparin 5,000 UNITS/ML VIAL SC SCH ×2 (08:17→20:16)
[2020-02-24] MEDS: hydrALAZINE 25 MG TAB PO SCH ×3 (09:44→20:16)
[2020-02-24] MEDS: Lisinopril 5 MG TAB PO SCH (16:45)
[2020-02-24] MEDS: Atorvastatin Calcium 40 MG TAB PO SCH (20:16)
[2020-02-24] MEDS: Lisinopril 10 MG TAB PO SCH (20:17)
--- NOTE | 2020-02-24 23:45 | PRG ---
DATE OF SERVICE: 02/24/2020 SUBJECTIVE: The patient was seen this evening during rounds. He was sitting up in bed with no signs of acute distress. Nursing reported no acute events. OBJECTIVE: VITAL SIGNS: Temperature 98.9, pulse 88, respirations 14, oxygen saturation 91% on room air, and blood pressure 130/54. GENERAL: A well-appearing male, sitting up in bed, resting comfortably and asleep with no signs of acute distress. PULMONARY: Equal chest rise and fall. No signs of acute respiratory distress. ASSESSMENT: 1. Status post fall from standing. 2. Right/left femoral neck fracture, status post repair. 3. Acute kidney injury on chronic kidney disease 3, improving. 4. History of diabetes, hypertension, chronic kidney disease, multiple cerebrovascular accidents and transient ischemic attacks. PLAN: Continue current diet and pain regimen. Continue physical and occupational therapy. Continue aggressive pulmonary hygiene. The patient is pending discharge to a fpc facility. He is ready for discharge at this time. Job ID: [id number]
[2020-02-25] MEDS: Acetaminophen/Codeine 30-300mg Tablet PO SCH ×4 (02:04→20:25)
[2020-02-25] MEDS: Acetaminophen 325 MG TAB PO SCH ×4 (02:05→20:26)
[2020-02-25] MEDS: Gabapentin 100 MG CAP PO SCH ×2 (05:14→17:19)
--- NOTE | 2020-02-25 05:37 | PRG ---
DATE OF SERVICE: 02/24/2020 SUBJECTIVE: The patient is resting comfortably in a chair during morning rounds. He is currently eating breakfast and has a good appetite. He worked with physical therapy yesterday and was able to sit and stand multiple times and walk with assistance around the room. He states that his pain has been well controlled on the current regimen. He is currently postop day #3, status post right hip hemiarthroplasty. OBJECTIVE: VITAL SIGNS: Temperature 98.2 degrees Fahrenheit, blood pressure 137/64, heart rate 84, respiratory rate 16, oxygen saturation 90% on room air. GENERAL: Elderly male, awake, alert, in no distress. HEENT: Unremarkable. CARDIAC: Regular rate and rhythm. RESPIRATORY: Good inspiratory and expiratory effort with mildly prolonged expiratory phase. ABDOMEN: Soft, nontender, nondistended. EXTREMITIES: Neurovascularly intact x4. NEUROLOGIC: GCS is 15. LABORATORY DATA: Sodium 139, potassium 4.4, carbon dioxide 22, creatinine 2.37, BUN 32, calcium 8.2, phosphorus 3.9, magnesium 2.0. RADIOGRAPHIC DATA: None to review this a.m. ASSESSMENT: 1. Status post fall from standing. 2. Right femoral neck fracture postop day #3. 3. Right hemiarthroplasty. 4. ELIZABETH on CKD stage 3. 5. History of hypertension, multiple strokes, chronic kidney disease stage 3, TIAs, tobacco abuse, and diabetes. PLAN: Continue current pain regimen and supportive care. Continue diabetic diet as tolerated. Continue aggressive pulmonary toilet with the use of incentive spirometer every hour while awake. Awaiting insurance approval for placement to nursing home facility for continued rehab. This is more difficult than usual due to the patient currently being homeless. The patient was seen and evaluated by Dr. Lund during morning rounds. Discussed plan of care with the patient, who is in agreement. Job ID: [id number] [facility]
[2020-02-25 05:49] LABS: Anion Gap 14 mmol/L (10-20); BUN (Urea Nitrogen) 34 mg/dL (8.4-25.7); Calc. Creatinine Clearance 24 mL/min (70-130); Calcium 8.4 mg/dL (7.8-10.44); Carbon Dioxide 21 mmol/L (23-31); Chloride 108 mmol/L (98-107); Estimated GFR-MDRD 29; Glucose 88 mg/dL (83-110); Magnesium 2.2 mg/dL (1.6-2.6); Phosphorus 4.2 mg/dL (2.3-4.7); Sodium 139 mmol/L (136-145)
[2020-02-25 05:51] LABS: Band 3 % (5-11); Eosinophils 23 % (0-10); Hemoglobin 7.3 g/dL (14.0-18.0); Lymphocytes 17 % (21-51); MDiff Complete? YES; Mean Corpuscular HGB CONC 34.2 g/dL (32.0-36.0); Mean Corpuscular Hemoglobin 31.5 pg (27.0-31.0); Mean Corpuscular Volume 92.1 fL (78.0-98.0); Monocytes 3 % (0-10); Neutrophil 54 % (42-75); Platelet Count 183 thou/uL (130-400); RBC Distribution Width 11.9 % (11.5-14.5); Red Blood Cell (RBC) Count 2.31 mill/uL (4.70-6.10); White Blood Cell (WBC) Count 9.7 thou/uL (4.8-10.8)
[2020-02-25] MEDS: Mometasone 200 MCG/Formoterol 5 MCG 120 PUFF INHALER INH SCH ×2 (08:05→18:57)
[2020-02-25] MEDS: Ferrous Sulfate 325 MG TAB PO SCH ×2 (08:54→17:21)
[2020-02-25] MEDS: Famotidine 20 MG TAB PO SCH (08:54)
[2020-02-25] MEDS: Amlodipine 10 MG TAB PO SCH (08:54)
[2020-02-25] MEDS: Senokot S 8.6-50 MG TAB PO SCH ×2 (08:54→20:26)
[2020-02-25] MEDS: Lisinopril 10 MG TAB PO SCH ×2 (08:55→20:26)
[2020-02-25] MEDS: Ascorbic Acid 500 mg Chewable Tablet PO SCH ×2 (08:55→20:26)
[2020-02-25] MEDS: hydrALAZINE 25 MG TAB PO SCH ×3 (08:55→20:26)
[2020-02-25] MEDS: Heparin 5,000 UNITS/ML VIAL SC SCH ×2 (08:56→20:25)
[2020-02-25] MEDS: Acetaminophen/Codeine 30-300mg Tablet PO PRN (11:51)
--- NOTE | 2020-02-25 15:13 | PQF ---
CLINICAL DOCUMENTATION CLARIFICATION FORM: Dear ALOK Coyle Date: 02/26/20 Please exercise your independent, professional judgment in responding to the clarification form. Clinical indicators are provided on the bottom of this form for your review. Please check appropriate box(es): [ ] Protein Calorie Malnutrition: [ ] Mild [ ] Moderate [ ] Severe [ ] Other Malnutrition (please specify) [ ] Underweight without malnutrition [ ] Cachexia [ ] Other diagnosis [ ] Unable to determine In addition, please specify: Present on Admission (POA): [ ] Yes [ ] No [ ] Unable to determine For continuity of documentation, please document condition throughout progress notes and discharge summary. Thank You. To be completed by CDI/Coding staff for physician review: CLINICAL INDICATORS - SIGNS / SYMPTOMS / LABS / RESULTS AND LOCATION IN DIETARY ASSESSMENT 02/23: "OBSERVED FAT WASTING TO TRICEPS AND MUSCLE WASTING TO SIKHISM AND CLAVICLES, SUGGESTIVE OF SEVERE MALNUTRITION" "8% WEIGHT LOSS OVER THE PAST 2-3 WEEKS WITH 13.3% WEIGHT LOSS" BMI 17.6 RISK FACTORS / RESULTS AND LOCATION IN MR HIP FRACTURE (H&P) PATIENT IS HOMELESS (H&P) H/O DIABETES (H&P) TREATMENT / RESULTS AND LOCATION IN DIETARY CONSULTS 02/20, 02/23 RECOMMENDATION OF DIETARY SUPPLEMENTS (DIETARY ASSMT 02/23) Moderate Malnutrition (in acute illness) Energy Intake: <75% of estimated energy requirement for > 7 days Weight Loss: 1-2%/1 week; 5%/ 1 month; 7.5%/3 months Other: mild body fat loss; mild muscle mass loss; mild fluid accumulation; Severe Malnutrition (in acute illness) Energy Intake: = 50% of estimated energy requirement for = 5 days Weight Loss: >2%/1 week; >5%/1 month; >7.5%/3 months Other: moderate body fat loss; moderate muscle mass loss; moderate- severe fluid accumulation; measurably reduced abstracter strength Moderate Malnutrition (in chronic illness) Energy Intake: <75% of estimated energy requirement for =1 month Weight Loss: 5%/1 month; 7.5%/3 months; 10%/6 months; 20%/1 year Other: mild body fat loss; mild muscle mass loss; mild fluid accumulation Severe Malnutrition (in chronic illness) Energy Intake: =75% of estimated energy requirement for =1 month Weight Loss: >5%/1 month; >7.5%/3 months; >10%/6 months; >20%/1 year Other: severe body fat loss; severe muscle mass loss; severe fluid accumulation; measurably reduced abstracter strength CDS Signature: Bárbara Patton RN Phone #: [phone] Date: 02/26/20 This is a permanent part of the Medical Record [facility]
[2020-02-25] MEDS: Atorvastatin Calcium 40 MG TAB PO SCH (20:26)
[2020-02-26] MEDS: Acetaminophen/Codeine 30-300mg Tablet PO SCH ×4 (02:27→20:44)
[2020-02-26] MEDS: Acetaminophen 325 MG TAB PO SCH ×4 (02:27→20:41)
[2020-02-26] MEDS: Gabapentin 100 MG CAP PO SCH ×2 (05:27→17:30)
--- NOTE | 2020-02-26 06:19 | PRG ---
DATE OF SERVICE: 02/25/2020 SUBJECTIVE: The patient is resting comfortably in chair during morning rounds. He reports a good appetite. He worked with physical therapy yesterday and walked about the room an estimated 15 feet. He states that his pain is well controlled on the current regimen. He is currently postop day #4 status post right hip hemiarthroplasty. The patient denies any dizziness or lightheadedness. OBJECTIVE: VITAL SIGNS: Blood pressure 161/61, heart rate 89, respiratory rate 16, oxygen saturation 100% on room air, temperature 98.4 degrees Fahrenheit. GENERAL: Elderly male, awake, alert, in no acute distress. HEENT: Unremarkable. CARDIAC: Regular rate and rhythm. RESPIRATORY: Good inspiratory and expiratory effort with mildly prolonged expiratory phase. ABDOMEN: Soft, nontender, nondistended. EXTREMITIES: Neurovascularly intact x4. NEUROLOGIC: GCS is 15. LABORATORY DATA: White blood cell count 9.7, hemoglobin 7.3, hematocrit 21.3, platelets 183. Sodium 139; potassium 4.0; creatinine 2.23, mildly improved from yesterday at 2.37; phosphorus 4.2; magnesium 2.2; glucose 115. RADIOGRAPHIC DATA: None to review this a.m. ASSESSMENT: 1. Status post fall from standing. 2. Right femoral neck fracture, postop day #4. 3. Right hemiarthroplasty. 4. Acute kidney injury on chronic kidney disease. 5. History of hypertension, multiple strokes, chronic kidney disease stage 3, transient ischemic attacks, tobacco abuse, diabetes. PLAN: Plan is to continue current pain regimen and supportive care. Continue diabetic diet as tolerated. Continue aggressive pulmonary toilet with the use of incentive spirometer every hour while awake. The patient is asymptomatic; therefore, transfusion is not indicated at this time. We will monitor with hemoglobin in the next morning. Awaiting insurance approval for placement to senior care facility for continued rehab. This is more difficult than usual as the patient is currently homeless. He does, however, have a plan in place afterwards to go stay with a friend in [place]. [facility] The patient was seen and evaluated by Dr. Lund during morning rounds. Discussed plan of care with the patient who is in agreement. Job ID: [id number] MTDD
[2020-02-26] MEDS: Mometasone 200 MCG/Formoterol 5 MCG 120 PUFF INHALER INH SCH ×2 (07:56→19:01)
[2020-02-26] MEDS: Heparin 5,000 UNITS/ML VIAL SC SCH ×2 (08:26→20:44)
[2020-02-26] MEDS: Senokot S 8.6-50 MG TAB PO SCH ×2 (08:26→20:42)
[2020-02-26] MEDS: hydrALAZINE 25 MG TAB PO SCH ×3 (08:26→20:42)
[2020-02-26] MEDS: Amlodipine 10 MG TAB PO SCH (08:27)
[2020-02-26] MEDS: Ascorbic Acid 500 mg Chewable Tablet PO SCH ×2 (08:27→20:41)
[2020-02-26] MEDS: Ferrous Sulfate 325 MG TAB PO SCH ×2 (08:27→17:29)
[2020-02-26] MEDS: Lisinopril 10 MG TAB PO SCH ×2 (08:27→20:42)
[2020-02-26] MEDS: Famotidine 20 MG TAB PO SCH (08:27)
--- NOTE | 2020-02-26 09:04 | PRG ---
DATE OF SERVICE: 02/26/2020 SUBJECTIVE: Andrew is a 74-year-old male, postop day #5 from a right hip hemiarthroplasty. He is doing relatively well, slowly but surely is making progress. His ADLs have improved. Clinical panels demonstrate the patient is able to ambulate 40 feet with standby assist. This is the best he has done so far. It is believed Case Management is attempting to get the patient sent by [facility] to [place] to stay with family for his recovery. OBJECTIVE: VITAL SIGNS: Temperature 98.4, pulse 84, respiratory rate 18, O2 saturation is 100% on room air, blood pressure 154/61. GENERAL: He is alert and oriented to person, place, time, and situation. Responsive and appropriate with examiner. Incision is clean. No malrotation or shortening. He is neurovascularly intact in the right lower extremity. LABORATORY DATA: Hemoglobin and hematocrit 7.3 and 21.3 and asymptomatic. IMPRESSION: 1. This is a 74-year-old male, postop day #5 right hip hemiarthroplasty secondary to femoral neck fracture. 2. Asymptomatic postoperative hemorrhagic anemia. PLAN: 1. We will discuss with Case Management for placement and/or transportation, so he may convalesce with family members in [place]. 2. Defer to Trauma for medical management, give consideration to 1 unit packed red blood cells if he becomes symptomatic. Continue to observe for hemorrhage and pain control. Job ID: [id number]
[2020-02-26] MEDS: Cyclobenzaprine 10 MG TAB PO PRN (20:43)
[2020-02-26] MEDS: Atorvastatin Calcium 40 MG TAB PO SCH (20:44)
--- NOTE | 2020-02-26 23:49 | PRG ---
DATE OF SERVICE: 02/26/2020 SUBJECTIVE: The patient is resting comfortably in chair during morning rounds. He reports a good appetite and slept well. He worked with physical therapy yesterday, and ambulated 40 feet. He states that his pain is well controlled on the current regimen. He is currently postop day #5, status post right hip hemiarthroplasty. He denies any dizziness or lightheadedness. He has not had a bowel movement since admission. OBJECTIVE: VITAL SIGNS: Temperature is 98.4 degrees Fahrenheit, blood pressure is 139/56, heart rate is 91, respiratory rate is 16, and oxygen saturation is 100% on room air. GENERAL: Elderly male, awake, alert, in no acute distress. HEENT: Unremarkable. CARDIAC: Regular rate and rhythm. RESPIRATORY: Good inspiratory and expiratory effort. Clear to auscultation bilaterally. ABDOMEN: Soft, nontender, and nondistended. EXTREMITIES: Neurovascularly intact x4. NEUROLOGIC: GCS is 15. LABORATORY DATA: Blood glucoses range 101 to 123 over the past 24 hours. RADIOGRAPHIC DATA: None to review this a.m. ASSESSMENT: 1. Status post fall from standing. 2. Right femoral neck fracture postop day #5. 3. Right hemiarthroplasty. 4. Acute kidney injury on chronic kidney disease, improved. 5. History of hypertension, multiple strokes, chronic kidney disease stage 3, transient ischemic attack, tobacco abuse, and diabetes. PLAN: Continue current pain regimen and supportive care. Continue diabetic diet as tolerated. Continue aggressive pulmonary toilet with the use of incentive spirometer every hour while awake. The patient is awaiting insurance approval for placement to a assisted facility. The patient does have a plan in place. After discharge from rehab, he will be going to [place] with his brother. Hopefully, this will expedite the acceptance to placement. We will also follow up with case management in regard [facility]. The patient was seen and evaluated by Dr. Lund during morning rounds. Discussed the plan of care with the patient who is in agreement. Job ID: [id number] MTDD
[2020-02-27] MEDS: Acetaminophen/Codeine 30-300mg Tablet PO SCH ×4 (02:06→20:59)
[2020-02-27] MEDS: Gabapentin 100 MG CAP PO SCH ×2 (04:01→17:44)
[2020-02-27] MEDS: Acetaminophen 325 MG TAB PO SCH ×4 (04:02→20:59)
[2020-02-27] MEDS: Mometasone 200 MCG/Formoterol 5 MCG 120 PUFF INHALER INH SCH ×2 (07:05→19:31)
[2020-02-27 07:36] LABS: #Eosinphils 0.4 thou/uL (0.0-0.7); #Lymphocytes 1.1 thou/uL (1.20-3.40); #Monocytes 0.6 thou/uL (0.11-0.59); #Neutrophils 6.8 thou/uL (1.40-6.50); %Basophils 0.2 % (0.0-1.0); %Eosinophils 4.9 % (0.0-10.0); %Lymphocytes 12.6 % (21.0-51.0); %Monocytes 6.1 % (0.0-10.0); %Neutrophils 76.1 % (42.0-75.0); Hemoglobin 7.3 g/dL (14.0-18.0); Mean Corpuscular HGB CONC 34.1 g/dL (32.0-36.0); Mean Corpuscular Hemoglobin 30.7 pg (27.0-31.0); Mean Corpuscular Volume 90.1 fL (78.0-98.0); Mean Platelet Volume 7.4 fL (7.4-10.4); Platelet Count 260 thou/uL (130-400); RBC Distribution Width 11.9 % (11.5-14.5); Red Blood Cell (RBC) Count 2.38 mill/uL (4.70-6.10)
[2020-02-27] MEDS: Ascorbic Acid 500 mg Chewable Tablet PO SCH ×2 (08:33→21:00)
[2020-02-27] MEDS: Famotidine 20 MG TAB PO SCH (08:33)
[2020-02-27] MEDS: Ferrous Sulfate 325 MG TAB PO SCH ×3 (08:33→21:00)
[2020-02-27] MEDS: Senokot S 8.6-50 MG TAB PO SCH ×2 (08:34→21:00)
[2020-02-27] MEDS: Lisinopril 10 MG TAB PO SCH (08:35)
[2020-02-27] MEDS: hydrALAZINE 25 MG TAB PO SCH ×2 (08:35→14:49)
[2020-02-27] MEDS: Amlodipine 10 MG TAB PO SCH (08:35)
[2020-02-27] MEDS: Heparin 5,000 UNITS/ML VIAL SC SCH ×2 (08:36→21:01)
[2020-02-27] MEDS: Atorvastatin Calcium 40 MG TAB PO SCH (21:00)
--- NOTE | 2020-02-27 21:14 | PRG ---
DATE OF SERVICE: 02/27/2020 SUBJECTIVE: The patient remains on the surgical floor. He is postop day 6 from a right hip hemiarthroplasty. He has been awaiting insurance approval for placement to [facility]. He reports no issues. There were no issues overnight. He is tolerating a diet. His pain is controlled and his bowel function has returned. OBJECTIVE: VITAL SIGNS: Temperature is 98.4, heart rate 89, blood pressure 121/53, respirations 16, and oxygen saturation 93% on room air. GENERAL: The patient is resting comfortably in bed. He is awake, conversant, appropriate. HEENT: Unremarkable. LUNGS: Clear to auscultation bilaterally. HEART: Regular rate and rhythm. ABDOMEN: Soft, nontender with active bowel sounds. EXTREMITIES: Neurovascularly intact x4. LABORATORY FINDINGS: White blood cell count 9.0, hemoglobin 7.3, hematocrit 21.5, platelets 260. There are no radiographs reviewed this morning. ASSESSMENT: 1. Status post ground level fall. 2. Postop day 6, status post right hemiarthroplasty for right femoral neck fracture. 3. Acute blood loss anemia, stable. 4. Lynlj-ch-nkprpwy kidney disease, improved, stable. 5. History of hypertension, multiple strokes, chronic kidney disease, history of transient ischemic attack, tobacco abuse, and diabetes. PLAN: Will be to continue supportive care. Encourage physical and occupational therapy and await insurance approval. The patient was discussed with Dr. Lund during rounds this morning. Job ID: [id number]
[2020-02-28] MEDS: Lisinopril 10 MG TAB PO SCH ×3 (02:14→20:55)
[2020-02-28] MEDS: hydrALAZINE 25 MG TAB PO SCH ×4 (02:14→20:55)
[2020-02-28] MEDS: Acetaminophen/Codeine 30-300mg Tablet PO SCH ×4 (04:24→20:54)
[2020-02-28] MEDS: Acetaminophen 325 MG TAB PO SCH ×4 (04:24→20:53)
[2020-02-28] MEDS: Gabapentin 100 MG CAP PO SCH ×2 (05:11→18:01)
[2020-02-28] MEDS: Acetaminophen/Codeine 30-300mg Tablet PO PRN (05:11)
[2020-02-28] MEDS: Mometasone 200 MCG/Formoterol 5 MCG 120 PUFF INHALER INH SCH ×2 (08:11→19:07)
[2020-02-28] MEDS: Senokot S 8.6-50 MG TAB PO SCH ×2 (08:25→20:55)
[2020-02-28] MEDS: Famotidine 20 MG TAB PO SCH (08:25)
[2020-02-28] MEDS: Amlodipine 10 MG TAB PO SCH (08:25)
[2020-02-28] MEDS: Ferrous Sulfate 325 MG TAB PO SCH ×2 (08:26→20:55)
[2020-02-28] MEDS: Ascorbic Acid 500 mg Chewable Tablet PO SCH ×2 (08:26→20:54)
[2020-02-28] MEDS: Heparin 5,000 UNITS/ML VIAL SC SCH ×2 (08:26→20:55)
--- NOTE | 2020-02-28 13:14 | PRG ---
DATE OF SERVICE: 02/28/2020 The patient was reviewed by Dr. Saturnino Lund. SUBJECTIVE: Mr. Kam is hospital day #7, postop day #6, status post ORIF of right hip hemiarthroplasty, doing well. No complaints, just awaiting rehab. No changes overnight. OBJECTIVE: VITAL SIGNS: Temperature is 98.7, blood pressure 123/60, heart rate is 93, breathing 18 times per minute, and 94% on room air. GENERAL: A 74-year-old male, sitting up in no acute distress. RESPIRATORY: Equal rise and fall. No respiratory distress. CARDIOVASCULAR: Strong pulses. ABDOMEN: Soft. MUSCULOSKELETAL: Moves extremities well. Thin. PSYCHIATRIC: Normal mood and affect. GCS is 15. LABORATORY DATA: Today, his glucose is 122. ASSESSMENT: 1. Status post ground-level fall. 2. Postop day #7, status post right hemiarthroplasty for right femoral neck fracture. 3. Blood loss anemia, stable. 4. Acute on chronic kidney disease, improved, stable. 5. History of hypertension, multiple strokes, chronic kidney disease, transient ischemic attack, tobacco abuse, and diabetes. PLAN: 1. Continue supportive care. 2. Continue work with PT/OT. 3. Hope for placement discharge later today. 4. Discussed with Case Management. 5. Answered all the questions. The patient is at bedside. Job ID: [id number]
[2020-02-28] MEDS: Atorvastatin Calcium 40 MG TAB PO SCH (20:54)
[2020-02-29] MEDS: Acetaminophen/Codeine 30-300mg Tablet PO SCH ×4 (04:43→20:42)
[2020-02-29] MEDS: Acetaminophen 325 MG TAB PO SCH ×4 (04:43→20:40)
[2020-02-29] MEDS: Gabapentin 100 MG CAP PO SCH ×2 (05:59→16:57)
[2020-02-29] MEDS: Acetaminophen/Codeine 30-300mg Tablet PO PRN (05:59)
[2020-02-29] MEDS: Mometasone 200 MCG/Formoterol 5 MCG 120 PUFF INHALER INH SCH ×2 (08:17→18:56)
[2020-02-29] MEDS: Ascorbic Acid 500 mg Chewable Tablet PO SCH ×2 (08:40→20:42)
[2020-02-29] MEDS: Ferrous Sulfate 325 MG TAB PO SCH ×2 (08:41→20:40)
[2020-02-29] MEDS: hydrALAZINE 25 MG TAB PO SCH ×3 (08:41→20:42)
[2020-02-29] MEDS: Senokot S 8.6-50 MG TAB PO SCH ×2 (08:42→20:41)
[2020-02-29] MEDS: Cyclobenzaprine 10 MG TAB PO PRN (08:42)
[2020-02-29] MEDS: Amlodipine 10 MG TAB PO SCH (08:43)
[2020-02-29] MEDS: Lisinopril 10 MG TAB PO SCH ×2 (08:43→20:43)
[2020-02-29] MEDS: Heparin 5,000 UNITS/ML VIAL SC SCH ×2 (08:50→20:43)
--- NOTE | 2020-02-29 12:53 | PRG ---
DATE OF SERVICE: 02/29/2020 SUBJECTIVE: Patient seen on morning rounds. No events overnight. Discussed with bedside RN, resting well in bed. He is hospital day #8, postop day #7, status post ORIF right hip with hemiarthroplasty. Pain is generally controlled. OBJECTIVE: VITAL SIGNS: Temperature is 98.7, blood pressure is 135/62, heart rate is 88, respiratory rate 16, saturating 95% on room air. GENERAL: A 74-year-old male sitting up in no distress. HEENT: Normocephalic. RESPIRATORY: Equal rise and fall. CARDIOVASCULAR: Strong pulses. PSYCHIATRIC: Normal mood and affect. NEUROLOGIC: Alert and oriented. MUSCULOSKELETAL: Surgery scar with dry dressing. LABORATORY DATA: To review aside from a glucose 127. ASSESSMENT: 1. Status post ground-level fall. 2. Postop day #8, status post right hemiarthroplasty for right femoral neck fracture. 3. Blood-loss anemia, stable. 4. Acute on chronic kidney disease, improved and stable. 5. History of hypertension, strokes, chronic kidney disease, transient ischemic attack, tobacco abuse, and diabetes. PLAN: 1. Continue supportive care. 2. Continue with PT/OT. 3. Hope for replacement discharge today. 4. I have discussed with the case management around 0830 this morning. Waiting to hear back. Answered questions bedside, coordinating with the bedside RN. Job ID: [id number]
[2020-02-29] MEDS: Atorvastatin Calcium 40 MG TAB PO SCH (20:43)
[2020-03-01] MEDS: Acetaminophen/Codeine 30-300mg Tablet PO SCH ×4 (02:32→19:59)
[2020-03-01] MEDS: Acetaminophen 325 MG TAB PO SCH ×4 (02:33→19:59)
[2020-03-01] MEDS: Gabapentin 100 MG CAP PO SCH ×2 (05:08→16:42)
[2020-03-01 05:41] LABS: #Basophils 0.1 thou/uL (0.0-0.2); #Eosinphils 1.1 thou/uL (0.0-0.7); #Lymphocytes 1.6 thou/uL (1.20-3.40); #Monocytes 0.7 thou/uL (0.11-0.59); #Neutrophils 6.7 thou/uL (1.40-6.50); %Basophils 0.6 % (0.0-1.0); %Eosinophils 10.6 % (0.0-10.0); %Lymphocytes 15.6 % (21.0-51.0); %Monocytes 7.2 % (0.0-10.0); Hemoglobin 7.3 g/dL (14.0-18.0); Mean Corpuscular HGB CONC 33.3 g/dL (32.0-36.0); Mean Corpuscular Hemoglobin 30.9 pg (27.0-31.0); Mean Corpuscular Volume 92.8 fL (78.0-98.0); Mean Platelet Volume 7.5 fL (7.4-10.4); Platelet Count 393 thou/uL (130-400); RBC Distribution Width 12.7 % (11.5-14.5); Red Blood Cell (RBC) Count 2.36 mill/uL (4.70-6.10); White Blood Cell (WBC) Count 10.1 thou/uL (4.8-10.8)
[2020-03-01] MEDS: Mometasone 200 MCG/Formoterol 5 MCG 120 PUFF INHALER INH SCH ×2 (06:42→18:44)
[2020-03-01] MEDS: Lisinopril 10 MG TAB PO SCH ×2 (08:56→20:00)
[2020-03-01] MEDS: hydrALAZINE 25 MG TAB PO SCH ×3 (08:56→19:59)
[2020-03-01] MEDS: Senokot S 8.6-50 MG TAB PO SCH ×2 (08:56→19:59)
[2020-03-01] MEDS: Ferrous Sulfate 325 MG TAB PO SCH ×2 (08:56→19:59)
[2020-03-01] MEDS: Ascorbic Acid 500 mg Chewable Tablet PO SCH ×2 (08:56→19:58)
[2020-03-01] MEDS: Amlodipine 10 MG TAB PO SCH (08:57)
[2020-03-01] MEDS: Heparin 5,000 UNITS/ML VIAL SC SCH ×2 (08:57→19:59)
--- NOTE | 2020-03-01 17:22 | PRG ---
DATE OF SERVICE: 03/01/2020 SUBJECTIVE: Mr. Kam is hospital day #10, postop day #9 status post ORIF of the right hip with hemiarthroplasty. Pain is controlled. He is sitting up in no acute distress. His hemoglobin remains at 7.3. Poor motivation for Orthopedics ordered 1 unit of PRBCs. We are still waiting for approval for placement. No other event overnight. The patient states his pain is generally controlled and he is tolerating a diet. OBJECTIVE: VITAL SIGNS: Temperature is 98.8, blood pressure is 125/44, heart rate is 88, respiratory rate is 16, 93% on room air. GENERAL: A 74-year-old male sitting up, in no acute distress. Nontoxic appearing. HEENT: Normocephalic. Trachea is midline. RESPIRATORY: Equal rise and fall. No respiratory distress. CARDIOVASCULAR: Regular rate and rhythm. Strong pulses. PSYCH: Normal mood and affect. NEURO: GCS 15. EXTREMITIES: Moves all extremities well. LABORATORY DATA: White blood cell count 10.0, platelets are 393, hemoglobin and hematocrit are 7.3 and 21.9 respectively. Glucose is 103. ASSESSMENT AND PLAN: 1. Status post ground-level fall. 2. Postop day #9 status post right hemiarthroplasty for right femoral neck fracture. 3. Blood-loss anemia, remains stable yet much blood. 4. Acute on chronic kidney disease. 5. History of hypertension, strokes, CKD, TIA, tobacco abuse and diabetes. PLAN: 1. Continue supportive care. 2. Continue to work with PT, OT. 3. One PRBCs per Orthopedics. 4. Will repeat labs in the morning. 5. Monitor for transfusion reaction. 6. Discussed case management hoping we can discharge to rehab in the ensuing days. 7. Coordinated with Orthopedics staff and bedside RN, updated the patient and answered all questions at the bedside. Job ID: [id number]
[2020-03-01] MEDS: Atorvastatin Calcium 40 MG TAB PO SCH (20:00)
[2020-03-02] MEDS: Acetaminophen/Codeine 30-300mg Tablet PO SCH ×4 (02:41→19:45)
[2020-03-02] MEDS: Acetaminophen 325 MG TAB PO SCH ×4 (02:42→19:44)
[2020-03-02] MEDS: Gabapentin 100 MG CAP PO SCH ×2 (05:09→16:44)
[2020-03-02 06:08] LABS: #Lymphocytes 1.9 thou/uL (1.20-3.40); #Monocytes 0.8 thou/uL (0.11-0.59); #Neutrophils 9.1 thou/uL (1.40-6.50); %Basophils 0.3 % (0.0-1.0); %Eosinophils 7.5 % (0.0-10.0); %Lymphocytes 15.2 % (21.0-51.0); %Monocytes 6.1 % (0.0-10.0); %Neutrophils 70.9 % (42.0-75.0); Hemoglobin 9.2 g/dL (14.0-18.0); Mean Corpuscular Hemoglobin 30.8 pg (27.0-31.0); Mean Corpuscular Volume 90.6 fL (78.0-98.0); Mean Platelet Volume 7.5 fL (7.4-10.4); Platelet Count 460 thou/uL (130-400); RBC Distribution Width 13.3 % (11.5-14.5); Red Blood Cell (RBC) Count 2.98 mill/uL (4.70-6.10); White Blood Cell (WBC) Count 12.8 thou/uL (4.8-10.8)
[2020-03-02 06:35] LABS: Anion Gap 14 mmol/L (10-20); BUN (Urea Nitrogen) 40 mg/dL (8.4-25.7); Calc. Creatinine Clearance 27 mL/min (70-130); Calcium 8.8 mg/dL (7.8-10.44); Carbon Dioxide 22 mmol/L (23-31); Chloride 108 mmol/L (98-107); Estimated GFR-MDRD 33; Glucose 75 mg/dL (83-110); Magnesium 2.3 mg/dL (1.6-2.6); Phosphorus 4.5 mg/dL (2.3-4.7); Potassium 4.1 mmol/L (3.5-5.1); Sodium 140 mmol/L (136-145)
[2020-03-02] MEDS: Mometasone 200 MCG/Formoterol 5 MCG 120 PUFF INHALER INH SCH ×2 (07:24→19:42)
[2020-03-02] MEDS: Senokot S 8.6-50 MG TAB PO SCH ×2 (08:15→19:44)
[2020-03-02] MEDS: Ascorbic Acid 500 mg Chewable Tablet PO SCH ×2 (08:15→19:44)
[2020-03-02] MEDS: Amlodipine 10 MG TAB PO SCH (08:16)
[2020-03-02] MEDS: Lisinopril 10 MG TAB PO SCH ×2 (08:16→19:45)
[2020-03-02] MEDS: hydrALAZINE 25 MG TAB PO SCH ×3 (08:16→19:45)
[2020-03-02] MEDS: Ferrous Sulfate 325 MG TAB PO SCH ×2 (08:17→19:44)
[2020-03-02] MEDS: Heparin 5,000 UNITS/ML VIAL SC SCH ×2 (08:17→19:43)
--- NOTE | 2020-03-02 12:32 | PQF ---
CLINICAL DOCUMENTATION CLARIFICATION FORM: Dear Heraclio Faye PA-C Date: 03/02/20 Please exercise your independent, professional judgment in responding to the clarification form. Clinical indicators are provided on the bottom of this form for your review. Please check appropriate box(es): [ ] Protein Calorie Malnutrition: [ ] Mild [ ] Moderate [ x] Severe [ ] Other Malnutrition (please specify) [ ] Underweight without malnutrition [ ] Cachexia [ ] Other diagnosis [ ] Unable to determine In addition, please specify: Present on Admission (POA): [ ] Yes [ ] No [ ] Unable to determine For continuity of documentation, please document condition throughout progress notes and discharge summary. Thank You. To be completed by CDI/Coding staff for physician review: CLINICAL INDICATORS - SIGNS / SYMPTOMS / LABS / RESULTS AND LOCATION IN DIETARY ASSESSMENT 02/23: "OBSERVED FAT WASTING TO TRICEPS AND MUSCLE WASTING TO WORSHIP AND CLAVICLES, SUGGESTIVE OF SEVERE MALNUTRITION" "8% WEIGHT LOSS OVER THE PAST 2-3 WEEKS WITH 13.3% WEIGHT LOSS" BMI 17.6 RISK FACTORS / RESULTS AND LOCATION IN MR HIP FRACTURE (H&P) PATIENT IS HOMELESS (H&P) H/O DIABETES (H&P) TREATMENT / RESULTS AND LOCATION IN DIETARY CONSULTS 02/20, 02/23 RECOMMENDATION OF DIETARY SUPPLEMENTS (DIETARY ASSMT 02/23) Moderate Malnutrition (in acute illness) Energy Intake: <75% of estimated energy requirement for > 7 days Weight Loss: 1-2%/1 week; 5%/ 1 month; 7.5%/3 months Other: mild body fat loss; mild muscle mass loss; mild fluid accumulation; Severe Malnutrition (in acute illness) Energy Intake: = 50% of estimated energy requirement for = 5 days Weight Loss: >2%/1 week; >5%/1 month; >7.5%/3 months Other: moderate body fat loss; moderate muscle mass loss; moderate- severe fluid accumulation; measurably reduced city maintenance manager strength Moderate Malnutrition (in chronic illness) Energy Intake: <75% of estimated energy requirement for =1 month Weight Loss: 5%/1 month; 7.5%/3 months; 10%/6 months; 20%/1 year Other: mild body fat loss; mild muscle mass loss; mild fluid accumulation Severe Malnutrition (in chronic illness) Energy Intake: =75% of estimated energy requirement for =1 month Weight Loss: >5%/1 month; >7.5%/3 months; >10%/6 months; >20%/1 year Other: severe body fat loss; severe muscle mass loss; severe fluid accumulation; measurably reduced city maintenance manager strength CDS Signature: Bárbara Patton RN Phone #: [phone] Date: 03/02/20 This is a permanent part of the Medical Record [facility]
--- NOTE | 2020-03-02 18:38 | PRG ---
DATE OF SERVICE: 03/02/2020 SUBJECTIVE: The patient is hospital day #11, postop day #10, status post open reduction and internal fixation of a right hip fracture, specifically right hip hemiarthroplasty. [facility] been [facility]. He has been awaiting insurance approval, which has been somewhat delayed, but Case Management is working to get the patient placed as soon as possible. The patient's pain was controlled. He is tolerating a diet. Bowel and bladder functions returned. PHYSICAL EXAMINATION: VITAL SIGNS: Temperature is 99.0, heart rate 81, respirations 16, oxygen saturation 93% on room air, and blood pressure is 116/62. GENERAL: The patient is resting comfortably in bed. He is awake, alert, conversant, appropriate. He has just finished eating breakfast. HEENT: Unremarkable. LUNGS: Clear to auscultation bilaterally. HEART: Regular rate and rhythm. ABDOMEN: Soft, nontender with active bowel sounds. EXTREMITIES: Neurovascularly intact x4. LABORATORY FINDINGS: White blood cell count 12.8, hemoglobin 9.2, hematocrit 27.0, and platelets 460. Sodium 140, potassium 4.1, chloride 108, CO2 of 22, BUN 40, creatinine 2.0, magnesium 2.3, phosphorus 4.5. There are no radiographs reviewed this morning. ASSESSMENT AND PLAN: 1. Status post ground level fall. 2. Postop day #10, status post right hip hemiarthroplasty. 3. Blood loss anemia, transfused 1 unit yesterday, currently stable. 4. Acute on chronic kidney disease, stable. 5. History of hypertension. 6. Cerebrovascular accident. 7. Transient ischemic attack. 8. Tobacco abuse. 9. Diabetes. PLAN: Plan will be to continue supportive care. Encourage physical and occupational therapy and await placement decision. The patient was evaluated this morning with Dr. Lund during rounds. Job ID: [id number]
[2020-03-02] MEDS: Atorvastatin Calcium 40 MG TAB PO SCH (19:44)
[2020-03-03] MEDS: Acetaminophen 325 MG TAB PO SCH ×4 (02:29→21:15)
[2020-03-03] MEDS: Acetaminophen/Codeine 30-300mg Tablet PO SCH ×4 (02:29→21:15)
[2020-03-03] MEDS: Gabapentin 100 MG CAP PO SCH ×2 (05:17→16:09)
[2020-03-03 05:42] LABS: Hemoglobin 8.8 g/dL (14.0-18.0); Platelet Count 485 thou/uL (130-400)
[2020-03-03] MEDS: Mometasone 200 MCG/Formoterol 5 MCG 120 PUFF INHALER INH SCH ×2 (07:16→18:52)
[2020-03-03] MEDS: Ferrous Sulfate 325 MG TAB PO SCH ×2 (08:08→21:16)
[2020-03-03] MEDS: Senokot S 8.6-50 MG TAB PO SCH ×2 (08:08→23:37)
[2020-03-03] MEDS: Ascorbic Acid 500 mg Chewable Tablet PO SCH ×2 (08:08→21:14)
[2020-03-03] MEDS: Amlodipine 10 MG TAB PO SCH (08:09)
[2020-03-03] MEDS: Heparin 5,000 UNITS/ML VIAL SC SCH ×2 (08:09→21:14)
[2020-03-03] MEDS: Lisinopril 10 MG TAB PO SCH ×2 (08:09→21:16)
[2020-03-03] MEDS: hydrALAZINE 25 MG TAB PO SCH ×3 (08:09→21:15)
--- NOTE | 2020-03-03 18:33 | PRG ---
DATE OF SERVICE: 03/03/2020 This is Tracey Ochoa NP dictating a report for Saturnino Lund DO. SUBJECTIVE: The patient was seen during morning rounds with Dr. Lund. The patient is postop day #11 status post open reduction and internal fixation of right hip fracture and specifically right hip hemiarthroplasty. The patient continues to await placement to [facility]. The patient had no overnight events. The patient continues to work with Physical Therapy. The patient is tolerating a regular diet. The patient just completed physical therapy and is sitting up in chair at this time. The patient's pain is well controlled at this time. OBJECTIVE: VITAL SIGNS: Temperature 97.7, pulse 76, respirations 16, SpO2 of 95% on room air, blood pressure 118/56. GENERAL: Elderly male, awake, alert, no distress. RESPIRATORY: Good inspiratory and expiratory effort, no respiratory distress. EXTREMITIES: Neurovascularly intact x4. NEUROLOGIC: GCS 15. LABORATORY DATA: Hemoglobin 8.8, hematocrit 26.3, platelets 485. DIAGNOSTICS: No new diagnostics to review today. ASSESSMENT: 1. Status post ground level fall. 2. Postop day #11, status post right hip hemiarthroplasty. 3. Blood loss anemia, stable. 4. Acute on chronic kidney disease, stable. 5. History of hypertension, cerebrovascular accident, TIA, tobacco use, and diabetes. PLAN: Continue supportive care and pain regimen. Continue to increase physical and occupational therapy. Peer to peer for nursing home facility. Plan for tomorrow at 9:30 in the morning. If denied nursing home facility, we will work on placement to inpatient rehab. The plan was discussed with the patient who agrees. The patient was examined by Dr. Lund. Job ID: [id number]
[2020-03-03] MEDS: Atorvastatin Calcium 40 MG TAB PO SCH (21:14)
[2020-03-04] MEDS: Acetaminophen 325 MG TAB PO SCH ×4 (02:35→20:33)
[2020-03-04] MEDS: Acetaminophen/Codeine 30-300mg Tablet PO SCH ×4 (02:35→20:32)
--- NOTE | 2020-03-04 04:06 | PRG ---
DATE OF SERVICE: 03/03/2020 SUBJECTIVE: The patient was seen this evening during rounds. He was lying in bed, resting comfortably with no signs of acute distress. Nursing reported no acute events. OBJECTIVE: VITAL SIGNS: Temperature 97.6, pulse 74, respirations 16, oxygen saturation 94% on room air, blood pressure 136/79. ASSESSMENT: 1. Status post fall from standing. 2. Right femoral neck fracture, status post repair. 3. Acute kidney injury on chronic kidney disease, 3, stable. 4. History of diabetes, hypertension, chronic kidney disease, cerebrovascular accidents, and transient ischemic attacks. PLAN: Continue current diet and pain regimen. Continue physical and occupational therapy. The patient is ready for discharge at this time. Job ID: [id number]
[2020-03-04] MEDS: Gabapentin 100 MG CAP PO SCH ×2 (05:17→17:52)
[2020-03-04] MEDS: Mometasone 200 MCG/Formoterol 5 MCG 120 PUFF INHALER INH SCH ×2 (07:59→18:30)
[2020-03-04] MEDS: Ferrous Sulfate 325 MG TAB PO SCH ×2 (09:08→20:33)
[2020-03-04] MEDS: Ascorbic Acid 500 mg Chewable Tablet PO SCH ×2 (09:10→20:32)
[2020-03-04] MEDS: Senokot S 8.6-50 MG TAB PO SCH ×2 (09:10→20:34)
[2020-03-04] MEDS: Lisinopril 10 MG TAB PO SCH ×2 (09:10→20:34)
[2020-03-04] MEDS: Amlodipine 10 MG TAB PO SCH (09:10)
[2020-03-04] MEDS: hydrALAZINE 25 MG TAB PO SCH ×3 (09:10→20:33)
[2020-03-04] MEDS: Heparin 5,000 UNITS/ML VIAL SC SCH ×2 (09:11→20:32)
--- NOTE | 2020-03-04 18:56 | PRG ---
DATE OF SERVICE: 03/04/2020 SUBJECTIVE: The patient was seen during morning rounds. Awake, alert, in no distress. The patient is postop day #12 status post open reduction and internal fixation of a right hip fracture, right hip hemiarthroplasty. A peer to peer was completed today for care home facility, in which they denied the need for daily care home. We are in the process of doing an appeal as the patient needs continued therapy and assistance due to his age and recent hip fracture. The patient is tolerating a regular diet at this time. The patient continues to work with Physical Therapy. The patient's pain is well controlled. OBJECTIVE: VITAL SIGNS: Temperature 98.0, pulse 77, respirations 18, SpO2 of 98% on room air, and blood pressure 135/56. LABORATORY DATA: No new labs to evaluate today. GENERAL: Well appearing, no distress RESP: Respirations are even and unlabored. EXTREMITIES: MILLER ASSESSMENT: 1. Status post ground level fall. 2. Postop day #12 status post right hip hemiarthroplasty. 3. Blood loss anemia, stable. 4. Acute on chronic kidney disease, stable. 5. History of hypertension, cerebrovascular accident, transient ischemic attack, tobacco use, and diabetes. PLAN: Continue supportive care and pain regimen. Continue to increase physical and occupational therapy daily. Pending insurance appeal for care home facility. The plan was discussed with the patient, who agrees. The plan was discussed with the attending, who agrees. Job ID: [id number] MTDD
[2020-03-04] MEDS: Atorvastatin Calcium 40 MG TAB PO SCH (20:33)
--- NOTE | 2020-03-05 02:43 | PRG ---
DATE OF SERVICE: 03/04/2020 SUBJECTIVE: The patient was seen this evening during rounds. He was lying in bed, resting comfortably and asleep, but no signs of acute distress. The patient reported no acute events. OBJECTIVE: VITAL SIGNS: Temperature 98.2, pulse 71, respirations 18, oxygen saturation 95% on room air, blood pressure 133/54. ASSESSMENT: 1. Status post fall from standing. 2. Right femoral neck fracture, status post repair. 3. Acute kidney injury on chronic kidney disease 3, resolved. 4. History of diabetes, hypertension, stroke, chronic kidney disease, transient ischemic attack. PLAN: Continue current diet and pain regimen. Continue physical and occupational therapy. Continue supportive care. The patient was denied a stay at SNF even after peer to peer. The patient likely will be discharged to assisted with home health services if possible. Day Team to discuss with Case Management in the morning. He is ready for discharge at this time. Job ID: [id number]
[2020-03-05] MEDS: Acetaminophen/Codeine 30-300mg Tablet PO SCH ×4 (04:15→21:03)
[2020-03-05] MEDS: Acetaminophen 325 MG TAB PO SCH ×4 (04:15→21:03)
[2020-03-05] MEDS: Gabapentin 100 MG CAP PO SCH ×2 (05:24→18:10)
[2020-03-05] MEDS: Mometasone 200 MCG/Formoterol 5 MCG 120 PUFF INHALER INH SCH ×2 (08:06→18:56)
[2020-03-05] MEDS: Senokot S 8.6-50 MG TAB PO SCH ×2 (09:10→21:04)
[2020-03-05] MEDS: Heparin 5,000 UNITS/ML VIAL SC SCH ×2 (09:11→21:03)
[2020-03-05] MEDS: Ferrous Sulfate 325 MG TAB PO SCH ×2 (09:11→21:05)
[2020-03-05] MEDS: hydrALAZINE 25 MG TAB PO SCH ×3 (09:11→21:04)
[2020-03-05] MEDS: Ascorbic Acid 500 mg Chewable Tablet PO SCH ×2 (09:11→21:03)
[2020-03-05] MEDS: Lisinopril 10 MG TAB PO SCH ×2 (09:11→21:04)
[2020-03-05] MEDS: Amlodipine 10 MG TAB PO SCH (09:12)
--- NOTE | 2020-03-05 18:57 | PRG ---
DATE OF SERVICE: 03/05/2020 This is Tracey Ochoa NP dictating a report for Saturnino Lund DO. SUBJECTIVE: The patient was seen during morning rounds, resting comfortably in no acute distress. The patient is postop day #13 status post open reduction and internal fixation of a right hip fracture. The patient's pain is well controlled at this time. The patient continues to ambulate with physical therapy and is able to get around in his room using a walker. The patient continues to tolerate a diet. OBJECTIVE: VITAL SIGNS: Temperature 97.8, pulse 87, respirations 18, SpO2 of 96% on room air, blood pressure 105/53. GENERAL: Elderly male, awake, alert, in no distress. HEENT: Head is atraumatic, normocephalic. RESPIRATORY: Good inspiratory and expiratory effort, no respiratory distress. CARDIAC: Regular rate, regular rhythm. EXTREMITIES: Moves all extremities. No focal deficits. ASSESSMENT: 1. Status post ground level fall. 2. Postop day #13 status post right hip hemiarthroplasty. 3. Postop blood loss anemia, stable. 4. Acute on chronic kidney disease, stable. 5. History of hypertension, cerebrovascular accident, transient ischemic attack, tobacco abuse, and diabetes. PLAN: Continue supportive care and pain regimen. Continue to increase physical therapy and occupational therapy. Physical therapy is working with patient on stairs using a walker and did very well per Physical Therapy. The patient was denied insurance approval for prison facility. The patient has purchased a [employer] ticket for in the morning at 9:00 a.m. as he is going to travel to [place] where he will be staying with his brother as the patient has been homeless. Case Management has worked to get the patient's medications already filled and we will have a wheelchair van flower buncher or picker the patient tomorrow morning at 7:30 and take him to the [employer] bus and assist him getting on the bus with his belongings. Plan was discussed with the patient's brother who agrees. The patient was examined by Dr. Lund during morning rounds. Job ID: [id number]
[2020-03-05] MEDS: Atorvastatin Calcium 40 MG TAB PO SCH (21:03)
--- NOTE | 2020-03-06 00:38 | PRG ---
DATE OF SERVICE: 03/05/2020 SUBJECTIVE: The patient was seen this evening during rounds. He was lying in bed, resting comfortably, and asleep with no signs of acute distress. Nursing reported pain is well controlled. OBJECTIVE: VITAL SIGNS: Temperature 98.4, pulse 75, respirations 18, oxygen saturation 95% on room air, and blood pressure 136/59. ASSESSMENT: 1. Status post fall from standing. 2. Right femoral neck fracture, status post repair. 3. Acute kidney injury on chronic kidney disease, stage 3 - now resolved. 4. History of diabetes, hypertension, and multiple cerebrovascular accidents and transient ischemic attacks. PLAN: Continue current diet and pain regimen. Continue physical and occupational therapy. The patient to be discharged in the morning. He is ready for discharge at this time. Job ID: [id number]
[2020-03-06] MEDS: Acetaminophen/Codeine 30-300mg Tablet PO SCH (02:39)
[2020-03-06] MEDS: Acetaminophen 325 MG TAB PO SCH (02:39)
[2020-03-06 04:34] VITALS: TEMP 97.9
[2020-03-06] MEDS: Gabapentin 100 MG CAP PO SCH (05:59)
[2020-03-06] MEDS: Mometasone 200 MCG/Formoterol 5 MCG 120 PUFF INHALER INH SCH (06:44)
[2020-03-06 08:09] VITALS: BP 112/64
== END 2020-03-06 08:46 | disposition home or self-care (01) | DRG 521 ==
LOC: ERS 10:49 → SJJU 12:49
PROVIDERS: ADMIT Surgery; ATTEND Surgery
PROC: 0SRR01A Replacement of Right Hip Joint, Femoral Surface with Metal Synthetic Substitute, Uncemented, Open Approach (ICD-10-PCS; principal; 2020-02-21)
PROC: 30233N1 Transfusion of Nonautologous Red Blood Cells into Peripheral Vein, Percutaneous Approach (ICD-10-PCS; 2020-03-01)
DX: S72.011A Unspecified intracapsular fracture of right femur, initial encounter for closed fracture (principal); E43 Unspecified severe protein-calorie malnutrition; Z68.1 Body mass index [BMI] 19.9 or less, adult; N17.9 Acute kidney failure, unspecified; D62 Acute posthemorrhagic anemia; Z20.828 Contact with and (suspected) exposure to other viral communicable diseases; F17.210 Nicotine dependence, cigarettes, uncomplicated; E78.5 Hyperlipidemia, unspecified; W18.30XA Fall on same level, unspecified, initial encounter; N18.30 Chronic kidney disease, stage 3 unspecified; I12.9 Hypertensive chronic kidney disease with stage 1 through stage 4 chronic kidney disease, or unspecified chronic kidney disease; E11.22 Type 2 diabetes mellitus with diabetic chronic kidney disease; Z86.73 Personal history of transient ischemic attack (TIA), and cerebral infarction without residual deficits; Z79.899 Other long term (current) drug therapy; Z79.84 Long term (current) use of oral hypoglycemic drugs; Z79.82 Long term (current) use of aspirin; Z91.14 Patient's other noncompliance with medication regimen
CPT/HCPCS: 36415; 36416; 36430; 70450; 71045; 72170; 80048; 80053; 80306; 80307; 81001; 83735; 84100; 84484; 85014; 85018; 85025; 85027; 85049; 85610; 85730; 86850; 86900; 86901; 87070; 87205; 87635; 93005; 93306; 94640; 96374; 96375; C1776; G0390; J0690; J1644; J1815; J2270; J2405; J2704; J2765; J3010; J3475; J7620; P9016; U0002; U0003